=== PATIENT | female | born 1940 | race Caucasian/White ===

== ENCOUNTER 2024-08-08 12:16 | Emergency (ER) | payer MEDICARE, BC, SELFPAY ==
[2024-08-08] VITALS (13 sets, daily range): BP systolic 102–133; BP diastolic 57–78; PULSE 72–80; TEMP 37; O2SAT 88–94
--- NOTE | 2024-08-08 12:22 | ECG_ITS ---
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
--- NOTE | 2024-08-08 12:28 | ED.ABDPAIN1 ---
HPI - Abdominal Pain General Chief Complaint: Abdominal Pain Stated Complaint: ABDOMINAL PAIN Time Seen by Provider: 08/08/24 12:21 Source: patient Mode of arrival: ambulance History of Present Illness HPI narrative: The patient is a 83-year-old with a past medical history of COPD is coming to us with a lower abdominal pain associated with some changes in bowel movement, initially she mentioned that she have diarrhea but it does not seem that she have a frequent bowel movement daily he had her last bowel movement this morning and she mentioned that she did not have any nausea or vomiting She only have 1 bowel movement daily that is loose mostly The pain has been going on at least for 2 weeks The patient is complaining of crampy abdominal pain that is in the lower abdomen not radiating associated with any other symptoms she has been eating within normal appetite with some nausea but no vomiting The patient denies any burning with urination or any other concern Related Data Home Medications ?Medication ?Instructions ?Recorded ?Confirmed fluticasone furoate 100 1 inh inhalation Q24H 08/08/24 08/08/24 mcg-vilanterol 25 mcg/dose inhalation powder (Breo Ellipta) Allergies Allergy/AdvReac Type Severity Reaction Status Date / Time No Known Drug Allergies Allergy Verified 08/08/24 12:20 Review of Systems ROS Status of ROS 10 or more systems reviewed and unremarkable except as noted in history and below Exam Narrative Exam Narrative: Nurses notes and vital signs reviewed and patient is not hypoxic. General: Well-appearing and in no apparent distress. Skin: Warm, dry, no pallor noted. No rash. Head: Normocephalic, atraumatic. Neck: Supple, non-tender. Eye: Pupils are equal, round and EOMI. No scleral icterus. Ears, Nose, Mouth, and Throat: TM are clear, no nasal mucosal hypertrophy. Oral mucosa is moist, no posterior oropharynx erythema, uvula is mid-line Cardiovascular: Regular Rate and Rhythm without murmur, gallop or rub. Respiratory: No accessory muscle use or respiratory distress. Lungs are clear to auscultation, no wheezing, rales or rhonchi Chest Wall: no tenderness Back: No midline thoracic or lumbar vertebral tenderness. No CVA tenderness Musculoskeletal: normal ROM, no calf or popliteal tenderness, no lower extremity edema/swelling GI: Lower abdominal discomfort mostly in the lower abdomen generally and the patient have negative McBurney No masses appreciated. . No rebound, guarding, or rigidity noted. Neurological: A&O x4. No cranial nerve dysfunction observed. No truncal ataxia. Moves all extremities. Sensation intact. Psychiatric: Cooperative and interactive. Normal mood and affect. Constitutional Vital Signs, click to edit/add: Last Vital Signs Temp 98.6 F 08/08/24 12:16 Pulse 74 08/08/24 14:30 Resp 15 08/08/24 14:30 BP 103/74 08/08/24 15:00 Pulse Ox 92 L 08/08/24 14:30 O2 Del Method Nasal Cannula 08/08/24 12:21 O2 Flow Rate 2 08/08/24 12:21 Course Vital Signs Vital signs: Vital Signs Temperature 98.6 F 08/08/24 12:16 Pulse Rate 78 08/08/24 12:16 Respiratory Rate 20 08/08/24 12:16 Blood Pressure 133/78 08/08/24 12:16 Pulse Oximetry 88 L 08/08/24 12:16 Oxygen Delivery Method Room Air 08/08/24 12:16 Temperature 98.6 F 08/08/24 12:16 Pulse Rate 74 08/08/24 14:30 Respiratory Rate 15 08/08/24 14:30 Blood Pressure 103/74 08/08/24 15:00 Pulse Oximetry 92 L 08/08/24 14:30 Oxygen Delivery Method Nasal Cannula 08/08/24 12:21 Oxygen Delivery Flow Rate 2 08/08/24 12:21 MDM - Abdominal Pain MDM Narrative Medical decision making narrative: The patient CBC and chemistry showed no acute pathology that is significant specially with the patient mentioning that she have loose stool daily The patient had 500 cc of normal saline provided in the ER EKG showing sinus rhythm with a heart rate of [address] elevation or depression It was noted that the patient did not have any significant pain in the ER and also had this pulse ox that was low without the oxygen but she is oxygen dependent which is not a new complaint and she denies any chest pain or shortness of breath The patient CAT scan of the abdomen and pelvis showed that she have multiple chronic pathology including the fact that she have this endometrial thickening which according to the patient she has been evaluated 3 months ago for something similar because of endometrial mass, I did explain to the patient that she need to go back to her primary care doctor and 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 The patient agrees with the following Diagnosis and Treatment plan and the patient will be discharged home. Lab Data Labs: Lab Results 08/08/24 Range/Units 12:20 WBC 7.4 (4.0-11.0) 10^3/uL RBC 4.49 (4.20-5.40) 10^6/uL Hgb 13.8 (12.0-16.0) g/dL Hct 43.6 (36.0-48.0) % MCV 97.1 (81.0-99.0) fL MCH 30.7 (26.7-34.0) pg MCHC 31.7 (29.9-35.2) g/dL RDW 13.2 (11.0-15.0) % Plt Count 184 (150-450) 10^3/uL MPV 11.5 (9.5-13.5) fL Neut % (Auto) 59.8 (43.0-75.0) % Lymph % (Auto) 26.1 (20.5-60.0) % [place] % (Auto) 7.2 (1.7-12.0) % Eos % (Auto) 5.7 (0.9-7.0) % Baso % (Auto) 0.9 (0.2-2.0) % Neut # (Auto) 4.4 (1.4-6.5) 10^3/uL Lymph # (Auto) 1.9 (1.2-3.8) 10^3/uL [place] # (Auto) 0.5 (0.3-0.8) 10^3/uL Eos # (Auto) 0.4 (0.0-0.7) 10^3/uL Baso # (Auto) 0.1 (0.0-0.1) 10^3/uL Abs Immat Gran (auto) 0.02 (0.00-0.03) 10^3/uL Imm/Tot Granulo (auto) 0.3 (0.0-0.5) % PT 10.6 (9.0-11.6) sec INR 1.00 Sodium 140 (136-145) mmol/L Potassium 4.8 (3.5-5.1) mmol/L Chloride 102 (98-107) mmol/L Carbon Dioxide 27.2 (21.0-32.0) mmol/L Anion Gap 15.6 BUN 15.0 (7.0-18.0) mg/dL Creatinine 0.97 (0.55-1.02) mg/dL Est GFR ( Amer) >60 (>=60 mL/min/1.73m^2) Est GFR (Non-Af Amer) 55 L (>=60 mL/min/1.73m^2) BUN/Creatinine Ratio 15.5 Glucose 159 H (74-106) mg/dL Calcium 9.5 (8.5-10.1) mg/dL Total Bilirubin 1.1 H (0.2-1.0) mg/dL AST 24 (15-37) U/L ALT 20 (14-59) U/L Alkaline Phosphatase 51 (46-116) U/L Troponin I High Sens 5.7 (4.0-51.3) pg/mL Total Protein 6.8 (6.4-8.2) g/dL Albumin 3.6 (3.4-5.0) g/dL Globulin 3.2 g/dL Albumin/Globulin Ratio 1.1 Lipase 17.0 (16.0-77.0) U/L Discharge Plan Discharge Chief Complaint: Abdominal Pain Clinical Impression: Abdominal pain, Endometrial mass Patient Disposition: Home, Self-Care Time of Disposition Decision: 14:56 Condition: Good Prescriptions / Home Meds: No Action fluticasone furoate-vilanterol [Breo Ellipta] 100-25 mcg/dose blister with device 1 inh INHALATION Q24H Print Language: Macedonian Instructions: Abdominal Pain (ED) Referrals: Stefani Colón NP [Primary Care Provider] - 1 week Discharge Date/Time: 08/08/24 15:26
--- NOTE | 2024-08-08 12:29 | CT_ITS ---
[address] [address] Patient Name: FAROOQ JIANG MRN: [id number] date: 1940 Sex: F Assigned Patient Location: ER Current Patient Location: ER Accession/Order Number: [id number] Exam Date: 08/08/2024 13:00 Report Date: 08/08/2024 14:12 At the request of: MOHSEN STARKEY Procedure: CT abdomen pelvis wo con EXAMINATION: CT abdomen pelvis wo con HISTORY: abd pain , epigastric pain, nausea COMPARISON: CT abdomen 12/28/2011 TECHNIQUE: Axial, Coronal, and Sagittal images were obtained without and/or with IV contrast as indicated by examination type. Dose reduction techniques were achieved by using automated exposure control and/or adjustment of mA and/or kV according to patient size and/or use of iterative reconstruction technique. FINDINGS: LUNG BASES: No visible pulmonary or pleural disease. LIVER: Densely calcified masslike area within anterior right hepatic lobe, 2.7 cm in diameter. BILIARY: Cholecystectomy. PANCREAS: No lesion, fluid collection, or abnormal duct dilatation. SPLEEN: No enlargement or focal lesion. ADRENALS: No mass or enlargement. KIDNEYS: No mass, obstruction, or calcification. BOWEL/MESENTERY: No visible mass, obstruction, or bowel wall thickening. AORTA/VASCULAR: No aneurysm or dissection. RETROPERITONEUM: No mass or adenopathy. LYMPH NODES: No adenopathy. URINARY BLADDER: No visible focal wall thickening, lesion, or calculus. PELVIC ORGANS: Fluid filled versus mass within endometrial cavity of the uterus, 3.8 cm in thickness. ABDOMINAL WALL: No mass or hernia. BONES: Old, healed posterior lower left rib fractures. 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 OTHER: Negative. CT/CT abdomen pelvis wo con IMPRESSION: 1. No acute or specific findings to account for patient's symptoms. 2. Densely calcified structure within anterior right hepatic lobe; sequela of previously treated tumor, or possibly a large granuloma. 3.Markedly abnormal thickening of the endometrial cavity, 3.9 cm; fluid-filled versus soft tissue mass. ORDER TO DELIVERY SUPERVISOR consultation is recommended. Electronically authenticated by: ZAHRAA PATEL Date: 08/08/2024 14:12
[2024-08-08 13:09] LABS: Basophils Absolute Auto 0.1 10^3/uL (0.0-0.1); Basophils Percent Auto 0.9 % (0.2-2.0); Eosinophils Absolute Auto 0.4 10^3/uL (0.0-0.7); Eosinophils Percent Auto 5.7 % (0.9-7.0); Hematocrit 43.6 % (36.0-48.0); Hemoglobin 13.8 g/dL (12.0-16.0); Immature Granulocytes Abs Auto 0.02 10^3/uL (0.00-0.03); Immature Granulocytes Pct Auto 0.3 % (0.0-0.5); Lymphocytes Absolute Auto 1.9 10^3/uL (1.2-3.8); Lymphocytes Percent Auto 26.1 % (20.5-60.0); Mean Corpuscular HGB Conc 31.7 g/dL (29.9-35.2); Mean Corpuscular Hemoglobin 30.7 pg (26.7-34.0); Mean Corpuscular Volume 97.1 fL (81.0-99.0); Mean Platelet Volume 11.5 fL (9.5-13.5); Monocytes Absolute Auto 0.5 10^3/uL (0.3-0.8); Monocytes Percent Auto 7.2 % (1.7-12.0); Neutrophils Absolute Auto 4.4 10^3/uL (1.4-6.5); Neutrophils Percent Auto 59.8 % (43.0-75.0); Platelet Count 184 10^3/uL (150-450); Red Blood Count 4.49 10^6/uL (4.20-5.40); Red Cell Distribution Width 13.2 % (11.0-15.0); White Blood Count 7.4 10^3/uL (4.0-11.0)
[2024-08-08 13:27] LABS: Prothrombin Time 10.6 sec (9.0-11.6)
[2024-08-08 13:32] LABS: Alanine Aminotransferase 20 U/L (14-59); Albumin Globulin Ratio 1.1; Albumin Level 3.6 g/dL (3.4-5.0); Alkaline Phosphatase 51 U/L (46-116); Anion Gap 15.6; Aspartate Amino Transferase 24 U/L (15-37); BUN Creatinine Ratio 15.5; Bilirubin Total 1.1 mg/dL (0.2-1.0); Calcium 9.5 mg/dL (8.5-10.1); Carbon Dioxide 27.2 mmol/L (21.0-32.0); Chloride 102 mmol/L (98-107); Estimated GFR (African America >60 (>=60 mL/min/1.73m^2); Estimated GFR (Non-African Ame 55 (>=60 mL/min/1.73m^2); Globulin 3.2 g/dL; Glucose 159 mg/dL (74-106); Potassium 4.8 mmol/L (3.5-5.1); Sodium 140 mmol/L (136-145); Total Protein 6.8 g/dL (6.4-8.2); Troponin I High Sensitivity 5.7 pg/mL (4.0-51.3)
== END 2024-08-08 15:26 | disposition home or self-care (01) ==
PROVIDERS: Emergency Provider Emergency Medicine; PCP Nurse Practitioner Family
DX: R10.9 Unspecified abdominal pain (principal); N85.8 Other specified noninflammatory disorders of uterus
CPT/HCPCS: 36415; 74176; 80053; 83690; 84484; 85025; 85378; 85610; 93005; 99285

== ENCOUNTER 2025-04-30 10:50 | Outpatient (OUT) | payer MEDICARE, BC, SELFPAY ==
--- NOTE | 2025-04-30 10:55 | ECG_ITS ---
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 Measurements Intervals [place] Rate: 79 P: -49 OR: 158 QRS: -58 QRSD: 86 T: 38 QT: 374 QTc: 430 Interpretive Statements SINUS RHYTHM PATTERN CONSISTENT WITH PULMONARY DISEASE LEFT ANTERIOR FASCICULAR BLOCK [QRS AXIS <= -45, QR IN I, RS IN II] Compared to ECG 08/08/2024 12:21:41 No significant changes Electronically Signed On 05-01-2025 18:20:27 EDT by MELVINA KEY M.D.
[2025-04-30 12:13] LABS: Hematocrit 43.1 % (36.0-48.0); Hemoglobin 14.1 g/dL (12.0-16.0); Immature Granulocytes Abs Auto 0.02 10^3/uL (0.00-0.03); Immature Granulocytes Pct Auto 0.3 % (0.0-0.5); Lymphocytes Absolute Auto 1.4 10^3/uL (1.2-3.8); Mean Corpuscular HGB Conc 32.7 g/dL (29.9-35.2); Mean Corpuscular Hemoglobin 31.3 pg (26.7-34.0); Mean Corpuscular Volume 95.8 fL (81.0-99.0); Platelet Count 151 10^3/uL (150-450); Red Blood Count 4.50 10^6/uL (4.20-5.40); White Blood Count 7.2 10^3/uL (4.0-11.0)
--- NOTE | 2025-04-30 12:22 | XR_ITS ---
[address] [address] Patient Name: FAROOQ JIANG MRN: [id number] date: 1940 Sex: F Assigned Patient Location: [facility] Current Patient Location: [facility] Accession/Order Number: [id number] Exam Date: 04/30/2025 12:32 Report Date: 04/30/2025 12:32 At the request of: JAYLEN ALBA DO Procedure: XR chest 2V Chest 2 views CLINICAL HISTORY: Pre Op COMPARISON: None FINDINGS: Heart normal in size. Presumably remote posttraumatic changes involving the right rib cage. No lung consolidation pneumothorax pleural effusion or free air. XR/XR chest 2V IMPRESSION: NO ACUTE CARDIOPULMONARY ABNORMALITY. Impression dictated by: Tenzin Pineda Jr., D.O. 04/30/2025 12:32 PM Dictation Location: [place] [address] Electronically authenticated by: [id number] Y Date: 04/30/2025 12:32
[2025-04-30 12:27] LABS: Anion Gap 11.3; Blood Urea Nitrogen 17.0 mg/dL (7.0-18.0); Calcium 8.9 mg/dL (8.5-10.1); Carbon Dioxide 32.6 mmol/L (21.0-32.0); Chloride 104 mmol/L (98-107); Estimated GFR (African America >60 (>=60 mL/min/1.73m^2); Estimated GFR (Non-African Ame >60 (>=60 mL/min/1.73m^2); Glucose 218 mg/dL (74-106); Potassium 4.9 mmol/L (3.5-5.1); Sodium 143 mmol/L (136-145)
--- NOTE | 2025-04-30 12:27 | PM.PRESUREVA ---
History of Present Illness History of Present Illness Chief complaint: Uterine Leomyoma, Pelvic Pain, Uterine Polyp Narrative: Patient presents for presurgical testing. Please see HPI from Dr. Malagon dated April 23, 2025. Review of Systems ROS Narrative Please see ROS from Dr. Malagon dated April 23, 2025. [facility] Medical History (Updated 04/30/25 @ 12:26 by Di Berger NP) Fibromyalgia �M79.7 - Fibromyalgia (ICD-10) Fall �W19.XXXA - Unspecified fall, initial encounter (ICD-10) Seizure-like activity �R56.9 - Unspecified convulsions (ICD-10) Atypical atrial flutter �I48.4 - Atypical atrial flutter (ICD-10) SHRUTHI (obstructive sleep apnea) �G47.33 - Obstructive sleep apnea (adult) (pediatric) (ICD-10) Nonproliferative diabetic retinopathy of both eyes �E11.3293 - Type 2 diabetes mellitus with mild nonproliferative diabetic retinopathy without macular edema, bilateral (ICD-10) Diverticulosis �K57.90 - Diverticulosis of intestine, part unspecified, without perforation or abscess without bleeding (ICD-10) Diabetic nephropathy �E11.21 - Type 2 diabetes mellitus with diabetic nephropathy (ICD-10) Chronic bronchitis �J42 - Unspecified chronic bronchitis (ICD-10) Atrial fibrillation �I48.91 - Unspecified atrial fibrillation (ICD-10) Arthritis �M19.90 - Unspecified osteoarthritis, unspecified site (ICD-10) Osteoporosis �M81.0 - Age-related osteoporosis without current pathological fracture (ICD-10) Deep vein thrombosis �I82.409 - Acute embolism and thrombosis of unspecified deep veins of unspecified lower extremity (ICD-10) Depression �F32.A - Depression, unspecified (ICD-10) On home oxygen therapy �Z99.81 - Dependence on supplemental oxygen (ICD-10) Seizures �R56.9 - Unspecified convulsions (ICD-10) Tonsillar hypertrophy �J35.1 - Hypertrophy of tonsils (ICD-10) Cataract �H26.9 - Unspecified cataract (ICD-10) Adenoid hypertrophy �J35.2 - Hypertrophy of adenoids (ICD-10) Hypertension �I10 - Essential (primary) hypertension (ICD-10) Diabetes �E11.9 - Type 2 diabetes mellitus without complications (ICD-10) Uterine polyp �N84.0 - Polyp of corpus uteri (ICD-10) Pelvic pain �R10.2 - Pelvic and perineal pain (ICD-10) Leiomyoma �D21.9 - Benign neoplasm of connective and other soft tissue, unspecified (ICD-10) Surgical History (Updated 04/30/25 @ 11:32 by Di Berger NP) History of tonsillectomy (1954) �Z90.89 - Acquired absence of other organs (ICD-10) H/O shoulder surgery �Z98.890 - Other specified postprocedural states (ICD-10) History of total hip arthroplasty �Z96.649 - Presence of unspecified artificial hip joint (ICD-10) History of colonoscopy �Z98.890 - Other specified postprocedural states (ICD-10) History of cholecystectomy �Z90.49 - Acquired absence of other specified parts of digestive tract (ICD-10) History of dilation and curettage �Z98.890 - Other specified postprocedural states (ICD-10) S/P cataract extraction and insertion of intraocular lens �Z98.49 - Cataract extraction status, unspecified eye (ICD-10) �Z96.1 - Presence of intraocular lens (ICD-10) Family History (Updated 04/30/25 @ 11:32 by Di Berger NP) Other Family history of diabetes mellitus Family history of hypertension Family history of stroke Social History (Updated 04/30/25 @ 11:26 by Di Berger NP) Within the past year, how often did you have a drink containing alcohol: never Score interpretation: A score less than 3 is consistent with normal alcohol consumption. Smoking status: Never smoker Non-prescribed substance use: denies use Highest level of school completed/degree received: high school graduate Meds Home Medications and Allergies Home Medications �Medication �Instructions �Recorded �Confirmed �Type fluticasone furoate 100 1 inh inhalation Q24H 08/08/24 04/30/25 History mcg-vilanterol 25 mcg/dose inhalation powder (Breo Ellipta) alendronate 70 mg tablet 70 mg PO QWEEK 04/30/25 04/30/25 History insulin glargine 100 unit/mL (3 45 unit subcut QPM 04/30/25 04/30/25 History mL) subcutaneous pen (Lantus Solostar U-100 Insulin) levetiracetam 1,000 mg tablet 1,000 mg PO Q12H 04/30/25 04/30/25 History lisinopril 2.5 mg tablet 2.5 mg PO DAILY 04/30/25 04/30/25 History multivitamin (Daily Multi-Vitamin 1 tab PO DAILY 04/30/25 04/30/25 History tablet) sertraline 100 mg tablet 100 mg PO DAILY 04/30/25 04/30/25 History Allergies Allergy/AdvReac Type Severity Reaction Status Date / Time No Known Drug Allergies Allergy Verified 04/30/25 11:16 Exam Narrative Exam Narrative: Constitutional: Awake, alert, comfortable, appears younger than stated age, well-appearing, nontoxic, interactive, vital signs as charted Head: Normocephalic, atraumatic Neck: Supple, normal appearance, normal range of motion, no meningeal signs, no lymphadenopathy Respiratory: No respiratory distress, breath sounds clear Cardiovascular: Regular rate and rhythm, strong and regular heart tones Abdomen: Nontender, normal bowel sounds, soft, no CVA tenderness Musculoskeletal: Ambulates briskly with a walker, no swelling or edema Skin: No rashes or induration, no lesions, only visible skin inspected Neuro: No neurological deficits, normal sensation Psychiatric: Oriented �3, normal affect Assessment and Plan Assessment and Plan (1) Leiomyoma: (2) Pelvic pain: (3) Uterine polyp: Plan D&C, hysteroscopy, possible MyoSure scheduled with Dr. Malagon May 16, 2025.
[2025-04-30 12:33] LABS: INR 0.97; Partial Thromboplastin Time 25.6 sec (22.3-36.2); Prothrombin Time 10.3 sec (9.0-11.6)
== END 2025-04-30 10:51 | disposition home or self-care (01) ==
LOC: PST 10:51
PROVIDERS: PCP Nurse Practitioner Family; Visit Provider Obstetrics & Gynecology
DX: Z01.810 Encounter for preprocedural cardiovascular examination (principal); Z01.812 Encounter for preprocedural laboratory examination; Z01.818 Encounter for other preprocedural examination; D25.9 Leiomyoma of uterus, unspecified; R10.2 Pelvic and perineal pain; N84.0 Polyp of corpus uteri
CPT/HCPCS: 36415; 71046; 80048; 85025; 85610; 85730; 93005; G0463

== ENCOUNTER 2025-05-16 08:19 | Day surgery (SDC) | payer MEDICARE, BC, SELFPAY ==
[2025-04-30 12:05] VITALS: BP 146/72; PULSE 80; TEMP 36.2; O2SAT 93; BMI 32.6
--- OUTSIDE RECORDS SUMMARY | 2025-05-07 09:00 | XMS_ITS | Encounter Summary ---
Author Organization [employer] [facility] tem Address [id number] [address] [place] [address] Care Team Providers Care Political Science Instructor Name Role Phone Stefani Colón COMMERCIAL INSURANCE UNDERWRITER-INSPECTOR DIALS Primary Care Provider Reason for Visit * Reason Comments Urinary Tract Infection * Consultation (Routine) - Pending Review Specialty Diagnoses / Procedures Referred By Vlad jordan Referred To Contact Urology Diagnoses Frequent UTI Procedures IA OFFICE OUTPATIENT VISIT 60-74 MINS HIGH MDM [phone] (SNOMED CT) - AMB REFERRAL TO UROLOGY Stefani Colón, MODESTA-INSPECTOR DIALS [address] [place] [address] Phone: tel: fax: Leland Fung MD [address] [place] [address] Phone: tel: fax: Referral ID Status Reason Start Date Expiration Date V isits Requested Visits Authorized [id number] Pending Review 11/22/2024 05/21/2025 1 1 Encounter Details Date Type Department Care Team (Late st Contact Info) Description 05/07/2025 9:00 AM EDT Office Visit [facility] [address] [place] [address] [place] [address] [place] [phone] Sosa De La Cruz PA [address] [place] [address] [id number] Frequent UTI (Primary Dx) Social History Tobacco Use Types Packs/Day Years Used Date Smoking Tobacco: Never Smokeless Tobacco: Never Alcohol Use Standard Drinks/Week Comments Not Currently 0 (1 standard drink = 0.6 oz pur e alcohol) [facility] Utilities Answer Date Recorded In the past 12 months has th e electric, gas, oil, or water company threatened to shut off services in your home? No 09/28/2023 Social Connection and Isolation Panel [NHANES] A nswer Date Recorded In a typical week, how many times do you talk on the phone with family, friends, or neighbors? Three times a week 09/28/20 How often do you get togethe r with friends or relatives? Once a week 09/28/2023 How often do you attend chur ch or adventism services? 1 to 4 times per year 09/28/2023 Do you belong to any clubs o r organizations such as spiritism groups, unions, fraternal or athletic groups, or school groups? No 09/28/2023 How often do you attend meet ings of the clubs or organizations you belong to? Never 09/28/2023 Are you , , di vorced, , never , or living with a partner? 09/28/2023 AUDIT-C Answer Date Recorded Q1: How often do you have a drink containing alcohol? Never 10/01/2023 Q2: How many drinks containi ng alcohol do you have on a typical day when you are drinking? Patient does not drink Q3: How often do you have si x or more drinks on one occasion? Never 10/01/2023 Overall Financial Resource Strain (CARDIA) Answe r Date Recorded How hard is it for you to pa y for the very basics like food, housing, medical care, and heating? Not very hard 09/28/2023 PHQ-2 Answer Date Recorded Total Score 0 10/01/2023 [facility] of Occupat ional Health - Occupational Stress Questionnaire Answer Date Recorded Do you feel stress - tense, restless, nervous, or anxious, or unable to sleep at night because your mind is troubled all the time - these days? Only a little 09/28/2023 Exercise Vital Sign Answer Date Recorde d On average, how many days pe r week do you engage in moderate to strenuous exercise (like a brisk walk)? 0 days 09/28/2023 On average, how many minutes do you engage in exercise at this level? 0 min 09/28/2023 PRAPARE - Transportation Answer Date Re corded In the past 12 months, has l ack of transportation kept you from medical appointments or from getting medications? No 09/01 In the past 12 months, has l ack of transportation kept you from meetings, work, or from getting things needed for daily living? No 09/28/2023 Housing Instability Answer Date Recorde d Are you worried or concerned that in the next two months you may not have stable housing that you own, rent or stay in as a part of a household? No 09/28/2023 Childcare Answer Date Recorded Do problems getting child ca re make it difficult for you to work or study? No 09/28/2023 Employment Answer Date Recorded Do you need help finding a [facility] center and/or a training program? No 09/28/2023 Hunger Screening Answer Date Recorded Within the past 12 months we worried whether our food would run out before we got money to buy more. Never True 05/07/2025 Within the past 12 months th e food we bought just didn't last and we didn't have money to get more. Never True 05/07/2025 Purpose - Life Answer Date Recorded I have a purpose and direction in my life. Agree 09/28/2023 Comments No Sex and Gender Information Value Date Recorded Sex Assigned at Female 02/12/2022 10:44 PM EDT Legal Sex Female 11:31 AM EDT Gender Identity Female 04/20/2020 12:29 PM EDT Sexual Orientation Straight 02/12/2022 10 :44 PM EDT documented as of this encounter Last Filed Vital Signs Vital Sign Reading Time Taken Comments Blood Pressure - - Pulse - - Temperature - - Respiratory Rate - - Oxygen Saturation - - Inhaled Oxygen Concentration - - Weight 80.7 kg (178 lb) 05/07/2025 9:27 AM EDT Height 162.6 cm (5' 4 ) 05/07/2025 9:27 AM EDT Body Mass Index 30.55 05/07/2025 9:27 AM EDT documented in this encounter Patient Instructions * Patient Instructions* ODELL Jara - 05/07/2025 9:00 AM EDT For further evaluation, we will get you scheduled for an ultrasound of your kidneys and bladder minerva cystoscopy with possible retrograde pyelograms and U of M instillation. We will call you with theresults of the ultrasound. Rosanne will call you in a few weeks to get you scheduled for the cystoscopy Call the office any time you suspected infection. For Urinary tract infection prevention, you could look in to cranberry supplements and or D mannosesupplements. * Attachments The following attachments cannot be sent through Care Everywhere. * Cystoscopy ([place]) * Retrograde pyelogram ([place]) documented in this encounter Progress Notes * ODELL Jara - 05/07/2025 9:00 AM EDT Images from the original note were not included. [address] [place] [id number] Patient: Allison Harris Date of : 1940 Encounter Date: 05/07/2025 History of Present Illness: The patient is a 84 y.o. female, a new patient, and is here for frequent urinary tract infections. She reports that for the past 6-12 months she has had numerous Urinary tract infections. Her symptoms typically include dark urine and burning with urination. She has not had any gross hematuria or fever. She has been seeing her PCP and reports that she always feels better on antibiotics. She has no prior urologic history and denies any current symptoms. She is not able to give us a urine specimen today. She has been having some mid abdominal pain and is scheduled for a D&C 05/17/2025 at [place]. She reports that they found a polyp. C&S 02/07/25: mixed sravanthi C&S 11/19/24: 50-100,000 Enterococcus C&S : >100,000 Hafnia alvei C&S 08/23/24: >100,000 Hafnia alvei C&S 01/23/24: >100,000 Enterococcus Urinalysis today: No results for input(s): EXTPOCURCO , EXTPOCURCH , EXTPOCAPP , EXTPOCURBS , EXTPOCURBIL , EXTPOCUKET , EXTPOCUSPG , EXTPOCUHGB , EXTPOCUPRO , EXTPOCUURO , EXTPOCULEU , EXTPOCUNIT , EXTPOCUWBC , EXTPOCUBLD , EXTPOCURBC , EXTPOCUCRY , EXTPOCUBAC , EXTPOCUTREP , EXTPOCUPH , EXTPOCUL EE in the last 72 hours. Last BUN and creatinine: Lab Results Component Value Date BUN 21 03/29/2024 Lab Results Component Value Date CREATININE 0.89 03/29/2024 Past Medical, Family, and Social History Update: The following portions of the patient's history were reviewed and updated as appropriate: allergies, current medications, past family history, past medical history, past social history, past surgicalhistory and problem list. 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 Asthma Cataract Diabetes ([place]) Diabetes type 2, controlled ([place]) Diverticulitis Fibromyalgia Hearing loss Hip fracture ([place]) History of cystocele Lumbar spinal stenosis Multiple rib fractures 01/01/2023 OA (osteoarthritis) Obesity SHRUTHI (obstructive sleep apnea) Pulmonary hypertension ([place]) UTI (urinary tract infection) Visual impairment Past Surgical History: Procedure Laterality Date CATARACT EXTRACTION CHOLECYSTECTOMY COLONOSCOPY CRANIECTOMY FOR EXCISION OF ACOUSTIC NEUROMA DENTAL SURGERY total extraction DILATION AND CURETTAGE OF UTERUS HIP SURGERY KNEE ARTHROCENTESIS REVERSE ARTHROPLASTY TOTAL SHOULDER Right 02/24/2022 Performed by Christopher Landaverde MD at [facility] T[facility] Family History Problem Relation Age of Onset Stroke Mother Hypothyroidism Mother Diabetes Father Stroke Father Current Outpatient Medications Medication Sig Dispense Refill alendronate (FOSAMAX) 70 mg tablet Take 1 tablet (70 mg total) by mouth every 7 days. In a.m. with water on empty stomach, nothing else by mouth and remain upright for 30min fluticasone furoate-vilanteroL (BREO ELLIPTA) 100-25 mcg/dose blister with device Inhale 1 puff in the morning. 60 each 9 LEVEMIR FLEXTOUCH U-100 INSULN 100 unit/mL (3 mL) insulin pen Inject 38 Units under the skin nightly. levETIRAcetam (KEPPRA) 1000 mg tablet Take 1 tablet (1,000 mg total) by mouth in the morning and 1 tablet (1,000 mg total) before bedtime. lisinopriL (PRINIVIL,ZESTRIL) 2.5 mg tablet Take 1 tablet (2.5 mg total) by mouth in the morning. multivitamin capsule Take 1 capsule by mouth in the morning. semaglutide 14 mg tablet Take 14 mg by mouth in the morning. sertraline (ZOLOFT) 50 mg tablet Take 1 tablet (50 mg total) by mouth in the morning. ipratropium-albuteroL (DUONEB) 0.5 mg-3 mg(2.5 mg base)/3 mL nebulizer Inhale 3 mL by nebulization every 4 (four) hours as needed for wheezing or shortness of breath. (Patient not taking: Reported on05/07/2025) levETIRAcetam (KEPPRA) 1000 mg tablet Take 1 tablet (1,000 mg total) by mouth in the morning and 1 tablet (1,000 mg total) before bedtime. (Patient not taking: Reported on 05/07/2025) 60 tablet 05 No current facility-administered medications for this visit. (All medications reviewed and updated by provider since last office visit or hospitalization) Allergies: Patient has no known allergies. Tobacco History: Social History Tobacco Use Smoking Status Never Smokeless Tobacco Never (If patient a smoker, smoking cessation counseling offered) Social History: Social History Substance and Sexual Activity Alcohol Use Not Currently Review of Systems: Constitutional: Normal activity and energy. Patient denies change in appetite, weight loss or gain,malaise (depression), chills, fever, or diaphoresis (sweating). Eyes: Patient denies vision changes or diplopia (double vision). Ears, Nose, Nose and Throat: Patient denies tinnitus (ringing in ears), hearing loss, epistaxis (nose bleed), hoarseness, and dysphagia (hard to swallow). Respiratory: Patient denies dyspnea (shortness of breath), cough, hemotypsis (blood in sputum), andwheezing. Cardiovascular: Patient denies chest pain, palpitations, and shortness of breath. Gastrointestinal: Patient denies abdominal pain, nausea, vomiting, bloating, diarrhea (chronic), constipation (chronic), melena (black stool), hematochezia (blood in stool). Musculoskeletal: Patient denies joint pain/stiffness, weakness, swelling, and backache. Neurologic: Patient denies weakness, dizziness, loss of consciousness, transient ischemic symptoms,and seizures. Integument: Patient denies rashes and non-healing lesions. Psychiatric: Patient denies increased nervousness, mood changes, or depression. Endocrine: Diabetes Blood Disorders: Patient denies anemia, easy bruising, and easy bleeding. Physical Exam: Ht 162.6 cm (5' 4 ) Wt 80.7 kg (178 lb) LMP (LMP Unknown) BMI 30.55 kg/m?? Constitutional: She appears well-developed. No distress. HENT: Head: Atraumatic. Nose: Nose normal. Eyes: Conjunctivae are normal. Pulmonary/Chest: Effort normal. No respiratory distress. Neurological: She is alert and oriented for age. Gait ; Uses a walker Psychiatric: She has a normal mood and affect. Her speech is normal. Nursing note and vitals reviewed. Assessment and Plan: Allison was seen today for urinary tract infection. Diagnoses and all orders for this visit: Frequent UTI - Ultrasound retroperitoneal complete; Future Problem List Genitourinary Frequent UTI - Primary Overview ====05/07/25====Frequent UTIs. 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 She will look in to cranberry and or D mannose supplements Current Assessment & Plan I explained cystoscopy to her in detail, including the potential risks. She will let the claim attorney know if she would prefer to be awake or asleep for the procedure. She will contact the office any time she suspects an infection so that we can have her stop at the lab to leave a urine. She has been referred to Dr. Fung. Relevant Orders Ultrasound retroperitoneal complete Follow-up: Print AVS. Renal US. Rosanne will call ODELL JARA This note was created with the assistance of a speech recognition program. While intending to generate a timely document that accurately reflects the content of the visit, no guarantee can be provided that every grammatical or spelling mistake has been or will be identified or corrected. Thank you for your understanding. ODELL Jara 05/07/25 0957 documented in this encounter Miscellaneous Notes * Assessment & Plan Note - ODELL Jara - 05/07/2025 9:56 AM EDT Associated Problem(s): Frequent UTI I explained cystoscopy to her in detail, including the potential risks. She will let the claim attorney know if she would prefer to be awake or asleep for the procedure. She will contact the office any time she suspects an infection so that we can have her stop at the lab to leave a urine. She has been referred to Dr. Fung. documented in this encounter Plan of Treatment Scheduled Orders Name Type Priority Associated Diagnoses Orde r Schedule Ultrasound retroperitoneal complete Imaging Routine Frequent UTI Expected: 05/07/2025, Expires: 05/07/2026 documented as of this encounter Goals Goal Patient Goal Type Associated Problems Recent Progress Patient-Stated? Author home General Yes Jil Howard LSW Note: Evaluation of progress towards goal: under assessment, pt awake & alert/oriented at time of DC planning assessment Return home General Yes Charito Armstrong, RN Note: Evaluation of progress towards goal: Plan to return home with home care. documented as of this encounter Visit Diagnoses Diagnosis Frequent UTI- Primary Urinary tract infection, site not specified documented in this encounter Additional Health Concerns Assessment Noted Time PHQ-9 Depression Total Score: 0 10/01/20 23 1:59 PM EST documented as of this encounter Care Teams Political Science Instructor Relationship Specialty Start Date End Date Stefani Colón APRN-ANTOINETTE [address] [place] [address] PCP - General Nurse Practitioner 03/29/24 documented as of this encounter
[2025-05-16] VITALS (8 sets, daily range): BP systolic 95–167; BP diastolic 50–80; PULSE 66–110; TEMP 35.6–36.6; O2SAT 92–99; BMI 33.8
--- OUTSIDE RECORDS SUMMARY | 2025-05-16 08:22 | XMS_ITS | Encounter Summary ---
Author Organization [facility] Address [address] [place] [address] Care Team Providers Care Hand Alterations Seamstress Name Role Phone Nancy Rios MD Primary Care Provider [phone] Stefani Colón CARE TRAINER Unavailable [phone] Rachel Storm LPN Unavailable [phone] Encounter Details Date Type Department Care Team (Late st Contact Info) Description 04/30/2025 Results Follow-Up [facility] [address] [place] [address] Stefani Colón NP [address] [place], [place] [id number] Social History Tobacco Use Types Packs/Day Years Used Date Smoking Tobacco: Never Smokeless Tobacco: Never Alcohol Use Standard Drinks/Week Comments Never 0 (1 standard drink = 0.6 oz pur e alcohol) caffeine: 1 cups per day B1300 Health Literacy Answer Date Recor ded How often do you need to hav e someone help you when you read instructions, pamphlets, or other written material from your doctor or pharmacy? Never 11/18/2024 Social Connection and Isolat ion Panel [NHANES] Answer Date Recorded In a typical week, how many times do you talk on the phone with family, friends, or neighbors? More than three times a week 11/18/2024 How often do you get togethe r with friends or relatives? Twice a week 11/18/2024 How often do you attend chur ch or anabaptism services? More than 4 times per year 11/18/2024 Do you belong to any clubs o r organizations such as baptist groups, unions, fraternal or athletic groups, or school groups? No 11/18/2024 Attends Club or Organization Meetings Not on horacio e 11/18/2024 Are you , , di vorced, , never , or living with a partner? 11/18/2024 AUDIT-C Answer Date Recorded Q1: How often do you have a drink containing alcohol? Never 11/18/2024 Q2: How many drinks containi ng alcohol do you have on a typical day when you are drinking? Patient does not drink Q3: How often do you have si x or more drinks on one occasion? Never 11/18/2024 Overall Financial Resource Strain (CARDIA) Answe r Date Recorded How hard is it for you to pa y for the very basics like food, housing, medical care, and heating? Not very hard 11/18/2024 PHQ-2 Answer Date Recorded Patient Health Questionnaire-2 Score 0 11/19/2024 [facility]at [facility] - Occupational Stress Questionnaire Answer Date Recorded Do you feel stress - tense, restless, nervous, or anxious, or unable to sleep at night because your mind is troubled all the time - these days? Not at all 11/18/2024 Exercise Vital Sign Answer Date Recorde d On average, how many days pe r week do you engage in moderate to strenuous exercise (like a brisk walk)? 2 days 11/18/2024 On average, how many minutes do you engage in exercise at this level? 30 min 11/18/2024 Hunger Vital Sign Answer Date Recorded Within the past 12 months, y ou worried that your food would run out before you got the money to buy more. Sometimes true Within the past 12 months, t he food you bought just didn't last and you didn't have money to get more. Never true PRAPARE - Transportation Answer Date Re corded In the past 12 months, has l ack of transportation kept you from medical appointments or from getting medications? No 10/31 In the past 12 months, has l ack of transportation kept you from meetings, work, or from getting things needed for daily living? No 11/18/2024 Housing Stability Vital Sign Answer Luis Manuel e Recorded In the last 12 months, was t here a time when you were not able to pay the mortgage or rent on time? No 11/18/2024 In the past 12 months, how m any times have you moved where you were living? 0 11/18/2024 At any time in the past 12 m [facility], were you homeless or living in a prison (including now)? No 11/18/2024 Comments No Sex and Gender Information Value Date Recorded Sex Assigned at Not on file Legal Sex Female 7:07 PM EDT Gender Identity Not on file Sexual Orientation Not on file documented as of this encounter Plan of Treatment Upcoming Encounters Date Type Department Care Team (Late st Contact Info) Description 05/21/2025 9:00 AM EDT Office Visit [facility] [address] [place] [phone] Stefani Colón NP [address] [place], [place] [phone] 05/21/2025 1:20 PM EDT Office Visit [facility] [address] [place] [address] Nupur Landon PA [address] [place] [address] 07/17/2025 10:15 AM EDT Procedure Visit [facility] [address] [place] [phone] Saman Vallecillo DPM [address] [place] [address] documented as of this encounter Goals Goal Patient Goal Type Associated Problems Recent Progress Patient-Stated? Author Help patient manage antidepressant medication Care Plan Patient on antidepressant monitoring plan No Stefani Colón NP Baseline PHQ-9 Care Plan Baseline PHQ-9 No Stefani Colón NP documented as of this encounter Visit Diagnoses Not on filedocumented in this encounter Additional Health Concerns Active Problems Noted Date Diagnosed Date Patient on antidepressant monitoring plan 2024 Baseline PHQ-9 11/06/2024 Assessment Noted Time PHQ-9 Depression Total Score: 0 11/19/19 25 12:00 PM EST documented as of this encounter Care Teams Hand Alterations Seamstress Relationship Specialty Start Date End Date Nancy Rios MD [address] [place], [place] [phone] PCP - General Family Medicine 11/28/23 Stefani Colón NP [address] [place] [address] Nurse Practitioner Family Medicine 11/28/23 Rachel Storm LPN Licensed Practical Nurse Family Medicine 06/07/24 documented as of this encounter
--- OUTSIDE RECORDS SUMMARY | 2025-05-16 08:22 | XMS_ITS | Encounter Summary ---
Author Organization [facility] Address [id number] [address] [place] [address] Care Team Providers Care Otr Driver Name Role Phone Stefani Colón Jason MEDIA CONSULTANT-CONVENTIONS RESERVATIONIST Primary Care Provider Encounter Details Date Type Department Care Team (Late st Contact Info) Description 05/22/2024 [facility] [address] [address] Amara Dumont RN Moderate persistent asthma without complication Social History Tobacco Use Types Packs/Day Years Used Date Smoking Tobacco: Never Smokeless Tobacco: Never Alcohol Use Standard Drinks/Week Comments Not Currently 0 (1 standard drink = 0.6 oz pur e alcohol) [facility] Utilities Answer Date Recorded In the past 12 months has [employer], gas, oil, or water company threatened to [...] often do you attend chur ch or muslim services? 1 to 4 times per year 09/28/2023 Do you belong to any clubs o r organizations such as quaker groups, unions, fraternal or athletic groups, or [...] Answer Date Recorded Total Score 0 10/01/2023 [facility] of Occupat ional Health - Occupational Stress [...] Recorded Do you need help finding a [facility] career center and/or a training program? No 09/28/2023 Hunger Screening Answer Date Recorded Within the past 12 months we worried whether our food would run out before we got money to buy more. Never True 03/29/2024 Within the past 12 months th e food we bought just didn't last and we didn't have money to get more. Never True 03/29/2024 Purpose - Life Answer Date Recorded I have a purpose and direction in my life. Agree 09/28/2023 Comments No Sex and Gender Information Value Date Recorded Sex Assigned at Female 02/12/2022 10:44 PM EDT Legal Sex Female 11:31 AM EDT Gender Identity Female 04/20/2020 12:29 PM EDT Sexual Orientation Straight 02/12/2022 10 :44 PM EDT documented as of this encounter Plan of Treatment Not on file documented as of this encounter Goals Goal [...] as of this encounter Visit Diagnoses Diagnosis Moderate persistent asthma without complication documented in this encounter Additional Health Concerns Assessment Noted Time PHQ-9 Depression Total Score: 0 10/01/20 23 1:59 PM EST documented as of this encounter Care Teams Otr Driver Relationship Specialty Start Date End Date Stefani Colón, MODESTA-ANTOINETTE [address] [place] [address] PCP - General Nurse Practitioner 03/29/24 documented as of this encounter
--- OUTSIDE RECORDS SUMMARY | 2025-05-16 08:22 | XMS_ITS | Clinical Summary ---
Author Organization [facility] tem Address [id number] [address] [place] [address] Care Team Providers Care Resistor Coater Name Role Phone Stefnai Colón WINE SPECIALIST-ONCOLOGY RN Primary Care Provider Allergies No known active allergies Medications sertraline (ZOLOFT) 50 mg tablet Take 1 tablet (50 mg total) by mouth in the morning. 0 Active multivitamin capsule Take 1 capsule by mouth in the morning. Active LEVEMIR FLEXTOUCH U-100 INSULN 100 unit/mL (3 mL) insulin pen Inject 38 Units under the skin nightly. 3 Active ipratropium-albu teroL (DUONEB) 0.5 mg-3 mg(2.5 mg base)/3 mL nebulizerIndicat ions:Moderate persistent asthma without complication Inhale 3 mL by nebulization every 4 (four) hours as needed for wheezing or shortness of breath. 3 Active Additional Information Patient not taking.Reported on 05/07/2025 levETIRAcetam (KEPPRA) 1000 mg tablet Take 1 tablet (1,000 mg total) by mouth in the morning and 1 tablet (1,000 mg total) before bedtime. 60 tablet 05 3 Active Additional Information Patient not taking.Reported on 05/07/2025 lisinopriL (PRINIVIL,ZESTRI L) 2.5 mg tablet Take 1 tablet (2.5 mg total) by mouth in the morning. 4 Active semaglutide 14 mg tablet Take 14 mg by mouth in the morning. 4 Active alendronate (FOSAMAX) 70 mg tablet Take 1 tablet (70 mg total) by mouth every 7 days. In a.m. with water on empty stomach, nothing else by mouth and remain upright for 30min Active fluticasone furoate-vilanter oL (BREO ELLIPTA) 100-25 mcg/dose blister with deviceIndication s:Moderate persistent asthma without complication Inhale 1 puff in the morning. 60 each 9 4 Active levETIRAcetam (KEPPRA) 1000 mg tabletIndication s:Seizure-like activity (CMS-HCC) Take 1 tablet (1,000 mg total) by mouth in the morning and 1 tablet (1,000 mg total) before bedtime. 5 Active Active Problems Problem Noted Date Diagnosed Date Seizure 10/01/2023 Seizure-like activity 09/29/2023 Altered mental state 09/28/2023 Atrial tachycardia 03/08/2023 Atypical atrial flutter 03/08/2023 Multiple rib fractures 01/01/2023 Frequent UTI 06/03/2022 Overview (05/07/2025): ====05/07/25====Frequent UTIs. 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 She will look in to cranberry and or D mannose supplements Assessment & Plan (05/07/2025 9:56 AM EDT): I explained cystoscopy to her in detail, including the potential risks. She will let the care team coordinator scheduler know if she would prefer to be awake or asleep for the procedure. She will contact the office any time she suspects an infection so that we can have her stop at the lab to leave a urine. She has been referred to Dr. Fung. Cervicogenic headache 06/03/2022 Closed 4-part fracture of proximal end of right humerus 02/24/2022 Type 2 diabetes mellitus wit h hyperglycemia, with long-term current use of insulin 02/13/2022 Closed fracture of right proximal humerus 2021 SHRUTHI (obstructive sleep apnea) 08/20/2020 Pulmonary hypertension 12/12/2019 Moderate persistent asthma without complication 12/12/2019 Nocturnal hypoxemia 12/12/2019 Resolved Problems Problem Noted Date Diagnosed Date Resolved Date Urinary tract infection without hematuria 06/03/2022 07/07/2022 Encounters Date Type Department Care Team Description 05/09/2025 Telephone [facility] [address] [place] [phone] Josie Silverman CMA 05/07/2025 9:00 AM EDT Office Visit [facility] [address] [place] [address] [place] [address] Sosa De La Cruz PA Frequent UTI (Primary Dx) 05/07/2025 Telephone [facility] [address] [place] [address] [place] [address] Sosa De La Cruz PA from Last 3 Months Immunizations Immunization Administration Dates Next Due COVID-19, mRNA, LNP-S, PF, 1 00mcg/0.5mL Dose 12/29/2020,12/01/2020 Influenza High Dose Preservative Free IM 020,07/16/2019,09/17/2018 Influenza, High-dose, Quadrivalent 09/13/2023,,07/19/2021 Influenza, Injectable, quadrivalent (PF) 017 Pneumococcal Conjugate 13-Valent 03/17/2015 Pneumococcal Polysaccharide 10/18/2021, 5 Zoster Vaccine Recombinant 02/08/2019,02/05/2019 Family History Medical History Relation Name Comments Diabetes Father Stroke Father Hypothyroidism Mother Stroke Mother Relation Name Status Comments Father Mother Social History Tobacco Use Types Packs/Day Years Used Date Smoking Tobacco: Never Smokeless Tobacco: Never Tobacco Cessation:Counseling Given: Not Answered Alcohol Use Standard Drinks/Week Comments Not Currently 0 (1 standard drink = 0.6 oz pur e alcohol) [facility] Utilities Answer Date Recorded In the past 12 months has [employer], gas, oil, or water [employer] threatened to shut off services in your [...] often do you attend chur ch or restoration services? 1 to 4 times per year 09/28/2023 Do you belong to any clubs o r organizations such as christian groups, unions, fraternal or athletic groups, or [...] Answer Date Recorded Total Score 0 10/01/2023 [facility] - Occupational Stress Questionnaire Answer Date Recorded [...] Recorded Do you need help finding a [facility] career center and/or a training program? [...] Orientation Straight 02/12/2022 10 :44 PM EDT Last Filed Vital Signs Vital Sign Reading Time Taken Comments Blood Pressure 102/40 11/07/2024 1:44 PM EST Pulse 57 11/07/2024 1:44 PM EST Temperature 36.9 C (98.4 F) 11/07/2024 12:39 PM EST Respiratory Rate 18 11/07/2024 1:44 PM EST Oxygen Saturation 98% 11/07/2024 1:44 PM EST Inhaled Oxygen Concentration - - Weight 80.7 kg (178 lb) 05/07/2025 9:27 AM EDT Height 162.6 cm (5' 4 ) 05/07/2025 9:27 AM EDT Body Mass Index 30.55 05/07/2025 9:27 AM EDT Plan of Treatment Health Maintenance Due Date Last Done Comments DTaP,Tdap and Td Vaccines (1 - Tdap) 1960 Fall Risk Screening 2006 Zoster (Shingles) Vaccine (2 of 2) 04/05/2019 02/08/2019, 02/05/2019 Depression Screening 10/01/2024 10/01/2023 COVID-19 Vaccine (2023-2 5 season) 2025 07/20/2024, 01/02/2024, 02/01/2022, Additional history exists Influenza Vaccine 06/30/2025 09/13/2023, , 07/19/2021, Additional history exists Tobacco Screening 05/07/2026 05/07/2025 Goals Goal Patient Goal Type Associated Problems Recent Progress Patient-Stated? Author home General Yes Jil Howard LSW Note: Evaluation of progress towards goal: under assessment, pt awake & alert/oriented at time of DC planning assessment Return home General Yes Charito Armstrong, RN Note: Evaluation of progress towards goal: Plan to return home with home care. Medical Devices Implanted Type Area Tyre Finisher And Examiner Device Identifier Shelf Expiration Date Model / Serial / Lot Tray Hum Aqls Ascnd Flx +0mm 0mm Cntr Os Shldr Rvrs Strl Lf Ty Cntr Ofst - [id number] - [id number] Implanted:Qty : 1 on 02/24/2022 by Christopher Landaverde MD at [facility] Orthopedic Implant Right: Shoulder [employer] 07/20/2026 [id number] / [id number] / Insert Hum H+6mm 36mm Aqls Ascnd Flx 7.5d Shldr Rvrs 7.5d Rev Rvrs - [id number] - [id number] Implanted:Qty : 1 on 02/24/2022 by Christopher Landaverde MD at [facility] Orthopedic Implant Right: Shoulder [employer] 06/17/2026 [id number] / [id number] / Description:ref [id number] Lateralized Baseplate Offset +3 Mm Ref [id number] Implanted:Qty : 1 on 02/24/2022 by Christopher Landaverde MD at [facility] Right: Shoulder [employer] [id number] 01/21/2027 [id number] / [id number] / Central Screw 6.5 X 35 Mm [id number] Implanted:Qty : 1 on 02/24/2022 by Christopher Landaverde MD at [facility] Right: Shoulder [employer] [id number] / [id number] / Peripheral Screw [id number] Implanted:Qty : 1 on 02/24/2022 by Christopher Landaverde MD at [facility] Right: Shoulder [employer] [id number] / [id number] / Peripheral Screw [id number] 5.0 X 38 Mm Implanted:Qty : 1 on 02/24/2022 by Christopher Landaverde MD at [facility] Right: Shoulder [employer] [id number] / [id number] / Aequalis Flex Revive Ptc Proximal Body Type : 0mm Implanted:Qty : 1 on 02/24/2022 by Christopher Landaverde MD at [facility] Right: Shoulder [employer] 11/03/2026 [id number] / [id number] / Aequalis Flex Revive Ptc Proximal Body Type : 15mm Ref [id number] Implanted:Qty : 1 on 02/24/2022 by Christopher Landaverde MD at [facility] Right: Shoulder [employer] [id number] / [id number] / Aequalis Flex Revive 15 Mm X 90 Mm L Implanted:Qty : 1 on 02/24/2022 by Christopher Landaverde MD at [facility] Right: Shoulder [employer] 12/27/2024 [id number] / [id number] / Tornier Perform Reversed Glenoid Standard Glenosphere 36 Mm Cementless Implanted:Qty : 1 on 02/24/2022 by Christopher Landaverde MD at [facility] Right: Shoulder [employer] 01/19/2027 [id number] / [id number] / Aequalis Flex Revive Locking Cap Implanted:Qty : 1 on 02/24/2022 by Christopher Landaverde MD at [facility] Right: Shoulder [employer] 10/06/2026 [id number] / [id number] / Description:Aequalis Flex Re vive locking cap SN : [id number] ref : [id number] Insurance MEDICARE [facility] Advance Directives Documents on File Type Date Recorded Patient Career Consultant Expl anation Advance Directive 09/28/2023 12:51 PM Durable Power of Dowel Sticker Operator 06/09/2022 8:22 AM Living Will 06/09/2022 8:22 AM DNR Physician Order 06/09/2022 8:21 AM Durable Power of Dowel Sticker Operator 06/01/2022 9:38 AM PHME PAP CMN 11-10-2 1 Living Will 05/04/2022 3:34 PM Durable Power of Dowel Sticker Operator 05/04/2022 3:34 PM Durable Power of Dowel Sticker Operator 04/21/2022 12:16 PM POA 04/21/22 Living Will 04/21/2022 12:15 PM LIVING [place] LL 04/21/22 DNR Physician Order 02/18/2022 2:25 PM * DNR Comfort Care Arrest (DNR-CCA) [place]er (Latest Code Status on File) Date Activated Date Inactivated Comments 10/01/2023 12:41 PM 10/05/2023 1:42 PM * Full Code Date Activated Date Inactivated Comments 10/01/2023 12:40 PM 10/01/2023 12:41 PM * DNR Comfort Care Arrest (DNR-CCA) [place] Date Activated Date Inactivated Comments 09/28/2023 2:47 PM 10/01/2023 12:39 PM * DNR Comfort Care Arrest (DNR-CCA) [place]er Date Activated Date Inactivated Comments 09/28/2023 12:49 PM 09/28/2023 2:47 PM * Full Code Date Activated Date Inactivated Comments 01/01/2023 3:23 AM 01/05/2023 8:36 PM Care Teams Resistor Coater Relationship Specialty Start Date End Date Stefani Colón APRN-ONCOLOGY RN [address] [place] [address] PCP - General Nurse Practitioner 03/29/24
--- OUTSIDE RECORDS SUMMARY | 2025-05-16 08:22 | XMS_ITS | Encounter Summary ---
Author Organization [facility] Address [address] [place] [address] Care Team Providers Care Supervisor Parking Lot Name Role Phone Nancy Rios MD Primary Care Provider [phone] Stefani Colón AWNING FRAME MAKER Unavailable [phone] Rachel Storm LPN Unavailable [phone] Encounter Details Date Type Department Care Team (Late st Contact Info) Description 05/05/2025 Abstract [facility] [address] [facility] [place] [address] Joshua [place], [place] Social History Tobacco Use Types Packs/Day Years [...] week 11/18/2024 How often do you attend [facility] or yarsanism services? More than 4 times per year 11/18/2024 Do you belong to any clubs o r organizations such as amish groups, unions, fraternal or athletic groups, or [...] Recorded Patient Health Questionnaire-2 Score 0 11/19/2024 [facility] - Occupational Stress [...] any time in the past 12 m [place], were you homeless or living in a residential (including now)? No 11/18/2024 Comments No Sex [...] EDT Office Visit [facility] [address] [place] [phone] Stefani Colón NP [address] [place] [address] 05/21/2025 1:20 PM EDT Office Visit [facility] [address] [facility] [place] [address] Nupur Landon PA [address] [facility] [address] [place], [place] [id number] 07/17/2025 10:15 AM EDT Procedure Visit [facility] [address] [place] [phone] Saman Vallecillo DPM [address] [place] [address] documented as of this encounter Goals Goal [...] documented as of this encounter Care Teams Supervisor Parking Lot Relationship Specialty Start Date End Date Nancy Rios MD [address] [place], [place] [phone] PCP - General Family Medicine 11/28/23 Stefani Colón NP [address] [place], [place] [phone] Nurse Practitioner Family Medicine 11/28/23 Rachel Storm LPN Licensed Practical Nurse Family Medicine 06/07/24 documented as of this encounter
--- OUTSIDE RECORDS SUMMARY | 2025-05-16 08:22 | XMS_ITS | Clinical Summary ---
Author Organization [facility] Address [address] [place] [address], [address] [place] [address] Care Team Providers Care Hatchery Man Name Role Phone Unknown, Provider Primary Care Provider Unavaila ble Social History Tobacco Use Types Packs/Day Years Used Date Smoking Tobacco: Never Assessed Comments Unknown Sex and Gender Information Value Date Recorded Sex Assigned at Not on file Legal Sex Female 10:57 PM EST Gender Identity Not on file Sexual Orientation Not on file Plan of Treatment Health Maintenance Due Date Last Done Comments DTaP/Tdap/Td vaccine (1 - Tdap) 1959 Respiratory Syncytial Virus (RSV) or age 60 yrs+ (1 - 1-dose 75+ series) 2016 COVID-19 Vaccine (2023-2 5 season) 2024 Flu vaccine (#1) 05/30/2025 Polio vaccine Aged Out No longer elig ibroman based on patient's age to complete this topic Care Teams Hatchery Man Relationship Specialty Start Date End Date Unknown, Provider PCP - General 10/05/23
--- OUTSIDE RECORDS SUMMARY | 2025-05-16 08:22 | XMS_ITS | Clinical Summary ---
Author Organization [facility] Address [address] [place] [address] Care Team Providers Care Gang Punch Operator Name Role Phone Josue William Primary Care Provider Allergies No known active allergies Medications GLYBURIDE 2.5 MG TAB Take one(1) tablet daily. 0 11/19/2007 Active sertraline hcl(ZOLOFT 100 MG TAB) Take one(1) tablet daily. 0 11/19/2007 Active ascorbic acid(VITAMIN C 500 MG TAB) Take one(1) tablet daily. 0 11/19/2007 Active VITAMIN E 400 UNIT CAP Take one(1) tablet twice daily. 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 had glaucoma, DM. Mother Alive massive stroke. Other Other 2nd of multiple myeloma. Social History Tobacco Use Types Packs/Day Years Used Date Smoking Tobacco: Never Assessed Alcohol Use Standard Drinks/Week Comments Not Asked 0 (1 standard drink = 0.6 oz pur e alcohol) Comments No Sex and Gender Information Value Date Recorded Sex Assigned at Not on file Legal Sex Female 8:11 AM EST Gender Identity Not on file Sexual Orientation Not on file Last Filed Vital Signs Vital Sign Reading Time Taken Comments Blood Pressure 152/70 11/19/2007 10:10 AM EST Pulse 72 11/19/2007 10:10 AM EST Temperature 37 C (98.6 F) 11/19/2007 10:10 AM EST Respiratory Rate 20 11/19/2007 10:10 AM EST Oxygen Saturation - - Inhaled Oxygen Concentration - - Weight 88 kg (194 lb) 11/19/2007 10:10 AM EST Height 160 cm (5' 3 ) 11/19/2007 10:10 AM EST Body Mass Index 34.37 11/19/2007 10:10 AM EST Plan of Treatment Health Maintenance Due Date Last Done Comments Anxiety Screening 1959 Depression Screening 1959 DTaP,Tdap,Td Vaccine (1 - Tdap) 1960 Diabetes Screening 1986 Pneumococcal Vaccine: 50+ (1 of 1 - PCV) 1991 Shingrix Vaccine (1 of 2) 1991 Bone Density Screening 2006 RSV Vaccine (1 - 1-dose 75+ series) 2016 Covid-19 Vaccine (1 - season) 2024 Advance Directive Discussion 10/30/2024 Influenza Vaccine (#1) 2025 Insurance MEDICARE PPO Care Teams Gang Punch Operator Relationship Specialty Start Date End Date Josue William PCP - General Family Medicine 03/16/11
--- OUTSIDE RECORDS SUMMARY | 2025-05-16 08:22 | XMS_ITS | Encounter Summary ---
Author Organization [facility] Address [id number] [address] [place] [address] Care Team Providers Care Synchro Assembler Name Role Phone Stefani Colón Jason SEWER HAND-MANAGER INTEGRATION Primary Care Provider Encounter Details Date Type Department Care Team (Late st Contact Info) Description 05/09/2025 Telephone [facility] [address] [place] [address] Josie Silverman CMA Social History Tobacco Use Types Packs/Day Years Used Date Smoking Tobacco: Never Smokeless Tobacco: Never Alcohol Use Standard Drinks/Week Comments Not Currently 0 (1 standard drink = 0.6 oz pur e alcohol) [facility] Utilities Answer Date Recorded In the past 12 months has [employer], gas, oil, or water [employer] threatened to shut off services in your [...] often do you attend chur ch or gnosticist services? 1 to 4 times per year [...] Answer Date Recorded Total Score 0 10/01/2023 [facility] - Occupational Stress [...] Recorded Do you need help finding a [facility] career center and/or a training program? [...] PM EDT documented as of this encounter Miscellaneous Notes * Telephone Encounter - Josie Silverman CMA - 05/09/2025 9:58 AM EDT Patient called in stating she will not be coming back to urology [place]. * Telephone Encounter - ODELL Jara - 05/09/2025 9:58 AM EDT Josie: Ok. Please wish her well for me. She should establish care with a Urologist there and let usknow if we need to send her records. Rosanne: Please disregard the cystoscopy order * Telephone Encounter - Rosanne Broussard - 05/09/2025 9:58 AM EDT noted documented in this encounter Plan of Treatment Not on [...] filedocumented in this encounter Additional Health Concerns Assessment Noted Time PHQ-9 Depression Total Score: 0 10/01/20 23 1:59 PM EST documented as of this encounter Care Teams Synchro Assembler Relationship Specialty Start Date End Date Stefani Colón, SEWER HAND-MANAGER INTEGRATION [address] [place] [address] PCP - General Nurse Practitioner 03/29/24 documented as of this encounter
--- OUTSIDE RECORDS SUMMARY | 2025-05-16 08:22 | XMS_ITS | Encounter Summary ---
Author Organization [facility] Address [address] [place] [address] Care Team Providers Care Geriatric Care Manager Name Role Phone Nancy Rios MD Primary Care Provider [phone] Stefani Colón RENTAL SALES ASSOCIATE Unavailable [phone] Rachel Storm LPN Unavailable [phone] Encounter Details Date Type Department Care Team (Late st Contact Info) Description 04/15/2025 Results Follow-Up [facility] [address] [place] [address] Nova Muñoz LPN [address] [place] [address] Social History Tobacco Use Types Packs/Day Years [...] often do you attend chur ch or protestant services? More than 4 times per year 11/18/2024 Do you belong to any clubs o r organizations such as scientology groups, unions, fraternal or athletic groups, or [...] Recorded Patient Health Questionnaire-2 Score 0 11/19/2024 [facility] Occupat ional Health - Occupational Stress [...] any time in the past 12 m [facility], were you homeless or living in a jail (including now)? No 11/18/2024 Comments No Sex and Gender Information Value Date Recorded Sex Assigned at Not on file Legal Sex Female 7:07 PM EDT Gender Identity Not on file Sexual Orientation Not on file documented as of this encounter Miscellaneous Notes * Result Encounter Note - Nova Muñoz LPN - 04/15/2025 2:31 PM EDT Pt notified and would like to get procedure done. Pt transferred to [facility] to get scheduled. documented in this encounter Plan of Treatment Upcoming Encounters Date Type Department Care Team (Late st Contact Info) Description 05/21/2025 9:00 AM EDT Office Visit [facility] [address] [place] [phone] Stefani Colón NP [address] [place] [address] 05/21/2025 1:20 PM EDT Office Visit [facility] [address] [facility] [place] [address] Nupur Landon PA [address] [facility] [address] [place], [place] [phone] 07/17/2025 10:15 AM EDT Procedure Visit [facility] [address] [place] [phone] Saman Vallecillo DPM [address] [address] documented as of this encounter Goals Goal [...] documented as of this encounter Care Teams Geriatric Care Manager Relationship Specialty Start Date End Date Nancy Rios MD [address] [place], [place] [phone] PCP - General Family Medicine 11/28/23 Stefani Colón NP [address] [place], [place] [id number] Nurse Practitioner Family Medicine 11/28/23 Rachel Storm LPN Licensed Practical Nurse Family Medicine 06/07/24 documented as of this encounter
--- OUTSIDE RECORDS SUMMARY | 2025-05-16 08:22 | XMS_ITS | Encounter Summary ---
Author Organization [employer] [facility] tem Address [facility] [id number] [address] [place] [address] Care Team Providers Care Circular Head Saw Operator Name Role Phone Eldon Stefani A STORAGE WORKER-BLOW MOULDING MACHINE OPERATOR Primary Care Provider Reason for Referral * Consultation (Routine) - Pending Review Specialty Diagnoses / Procedures Referred By Vlad jordan Referred To Contact Otolaryngology Diagnoses Acoustic neuroma ([facility]) Dennys Abrams MD [address] [place] [address] [address] [place] [address] Phone: tel: fax: Omar Medina W, [address] [place] [phone] Phone: tel: fax: Referral ID Status Reason Start Date Expiration Date Visits Requested Visits Authorized [id number] Pending Review Specialty Services Required 06/28/2024 06/28/2025 1 1 Reason for Visit * Reason Onset Date Comments received message 06/07/2024 Encounter Details Date Type Department Care Team ([facility] st Contact Info) Description 06/07/2024 Telephone [facility] Neurology [address] [place] [phone] Yuki Cortez received message Social History Tobacco Use Types Packs/Day Years Used Date Smoking Tobacco: Never Smokeless Tobacco: Never Alcohol Use Standard Drinks/Week Comments Not Currently 0 (1 standard drink = 0.6 oz pur e alcohol) [facility] Utilities Answer Date Recorded In the [...] often do you attend chur ch or yarsanism services? 1 to 4 times per year 09/28/2023 Do you belong to any clubs o r organizations such as samaritan groups, unions, fraternal or athletic groups, or [...] Answer Date Recorded Total Score 0 10/01/2023 [facility] of Occupat ional Health - Occupational Stress [...] Recorded Do you need help finding a [facility] career center and/or a training program? No [...] encounter Miscellaneous Notes * Telephone Encounter - Yuki Cortez - 06/07/2024 2:28 PM EDT Patient called and stated she received a message from Dr. Abrams but she was unsure what it was regarding. She added that if it was about scheduling her ENT appointment she is unable to go to [facility] and would needs a referral for someone in the [facility]. She asked for a call back at [phone] * Telephone Encounter - Dennys Abrams MD - 06/07/2024 2:28 PM EDT I was not able to find an ENT in the [place] area. The closest ENT physician would be in [place] which I placed a referral for. I would advise that she may be able to do a tele-visit withENT through [facility] as well if that would be more convenient for her. Thanks! EMMY * Telephone Encounter - Rebeca Miller CMA - 06/07/2024 2:28 PM EDT LVM for Patient. documented in this encounter Plan of Treatment Scheduled Referrals Name Type Priority Associated Diagnoses Order Schedule Ambulatory referral to ENT (Non-[facility]) Outpatient Referral Routine Acoustic neuroma (CMS-HCC) 1 Occurrences starting 06/28/2024 until 06/28/2025 documented as of this encounter Goals Goal [...] as of this encounter Visit Diagnoses Diagnosis Acoustic neuroma (CMS-HCC)- Primary Benign neoplasm of cranial nerves documented in this encounter Additional Health Concerns Assessment Noted Time PHQ-9 Depression Total Score: 0 10/01/20 23 1:59 PM EST documented as of this encounter Care Teams Circular Head Saw Operator Relationship Specialty Start Date End Date Stefani Colón APRN-BLOW MOULDING MACHINE OPERATOR [address] [place] [address] PCP - General Nurse Practitioner 03/29/24 documented as of this encounter
--- OUTSIDE RECORDS SUMMARY | 2025-05-16 08:22 | XMS_ITS | Encounter Summary ---
Author Organization [employer] tem Address [id number] [address] [place] [address] Care Team Providers Care Land Examiner Name Role Phone Stefani Colón Jason ESTHETICIAN-PERINATAL SOCIAL WORKER Primary Care Provider Encounter Details Date Type Department Care Team (Late st Contact Info) Description 08/06/2024 [facility] [address] [phone] Amara Dumont RN Social History Tobacco Use Types Packs/Day Years Used Date Smoking Tobacco: Never Smokeless Tobacco: Never Alcohol Use Standard Drinks/Week Comments Not Currently 0 (1 standard drink = 0.6 oz pur e alcohol) [facility] Utilities Answer Date Recorded In the past 12 months has [employer], gas, oil, or water company threatened [...] often do you attend chur ch or worship services? 1 to 4 times per year [...] Answer Date Recorded Total Score 0 10/01/2023 [facility] of Occupat ional Health - Occupational Stress [...] encounter Miscellaneous Notes * Telephone Encounter - Amara Dumont RN - 08/06/2024 3:18 PM EDT Patient called nurse line and left message requesting a return call. Missing Persons Investigator returned call. No answer. Left message for patient to contact office with any questions/concerns. Left office phone number for reference. documented in this encounter Plan of Treatment [...] documented as of this encounter Care Teams Land Examiner Relationship Specialty Start Date End Date Stefani Colón APRN-ANTOINETTE [address] [place] [address] PCP - General Nurse Practitioner 03/29/24 documented as of this encounter
--- OUTSIDE RECORDS SUMMARY | 2025-05-16 08:22 | XMS_ITS | Encounter Summary ---
Author Organization [employer] tem Address [id number] [address] [place] [address] Care Team Providers Care Air Control Electronics Operator Name Role Phone RiriStefani lewis Jason TIRE CENTER MANAGER-PROJECT ENGINEER Primary Care Provider Encounter Details Date Type Department Care Team (Late st Contact Info) Description 05/07/2025 Telephone [facility] [address] [place] [address] [place] [address] [address] Sosa De La Cruz I, ODELL [address] [place] [address] Social History Tobacco Use Types Packs/Day Years Used Date Smoking Tobacco: Never Smokeless Tobacco: Never Alcohol Use Standard Drinks/Week Comments Not Currently 0 (1 standard drink = 0.6 oz pur e alcohol) [facility] Utilities Answer Date Recorded In the past 12 months has [employer], gas, oil, or water [employer] threatened to shut off services in your [...] often do you attend chur ch or voodoo services? 1 to 4 times per year [...] Answer Date Recorded Total Score 0 10/01/2023 [facility] of Occupat ional Health - Occupational Stress [...] Recorded Do you need help finding a [facility] career center and/or a training program? No [...] encounter Miscellaneous Notes * Telephone Encounter - ODELL Jara - 05/07/2025 9:53 AM EDT Please schedule her for cystoscopy / possible bilateral retrograde pyelograms/ [facility] instillation with Dr. Fung in [place]. She will let you know if she would prefer to be under local anesthesia or MAC. If she is going under local anesthesia, I told her I could send in a dose of Valium if she felt she would tolerate better. Dx: Frequent Urinary tract infection * Telephone Encounter - Rosanne Broussard - 05/07/2025 9:53 AM EDT Images from the original note were not included. ODELL Jara 05/09/25 10:32 AM Note Josie: Ok. Please wish her well for me. She should establish care with a Urologist there and let usknow if we need to send her records. Rosanne: Please disregard the cystoscopy order 05/09/25 9:59 AM Josie Silverman CMA routed this conversation to ODELL Jara CMA KW 05/09/25 9:59 AM Note Patient called in stating she will not be coming back to urology as within 30 days she is moving [place] & will follow up with someone then. documented in this encounter Plan of Treatment [...] documented as of this encounter Care Teams Air Control Electronics Operator Relationship Specialty Start Date End Date Stefani Colón, MODESTA-PROJECT ENGINEER [address] [place] [address] PCP - General Nurse Practitioner 03/29/24 documented as of this encounter
--- OUTSIDE RECORDS SUMMARY | 2025-05-16 08:22 | XMS_ITS | Clinical Summary ---
Author Organization [facility] Address [address] [place] [address] Phone Care Team Providers Care Deburrer Machine Name Role Phone Unavailable Primary Care Provider Unavailabl e Social History Tobacco Use Types Packs/Day Years Used Date Smoking Tobacco: Never Assessed Comments Unknown Sex and Gender Information Value Date Recorded Sex Assigned at Not on file Legal Sex Female 7:45 AM EST Gender Identity Not on file Sexual Orientation Not on file Plan of Treatment Health Maintenance Due Date Last Done Comments Lipid Panel 1940 Yearly Adult Physical 1940 Diabetes Screening 1959 Hepatitis A Vaccines (1 of 2 - Risk 2-dose series) 1960 DTaP/Tdap/Td Vaccines (1 - Tdap) 1963 Hepatitis B Vaccines (1 of 3 - Risk 3-dose series) 2001 RSV High Risk: (Elderly (60+) or Population) (1 - 1-dose 75+ series) 2016 Zoster Vaccines (2 of 2) 04/05/2019 02/08/2019 Bone Density Scan 06/04/2023 06/04/2021 COVID-19 Vaccine ( season) 2024 01/02/2024, 02/01/2022, 09/21/2021, Additional history exists Influenza Vaccine (#1) 2025 3, 08/02/2022, 07/19/2021, Additional history exists Pneumococcal Vaccine Completed 10/18/2021, 03/17/2015, 10/30/2004 HIB Vaccines Aged Out No longer eligi ble based on patient's age to complete this topic HPV Vaccines Aged Out No longer eligi ble based on patient's age to complete this topic IPV Vaccines Aged Out No longer eligi ble based on patient's age to complete this topic Meningococcal Vaccine Aged Out No priscilla ralph eligible based on patient's age to complete this topic Rotavirus Vaccines Aged Out No longer eligible based on patient's age to complete this topic
--- OUTSIDE RECORDS SUMMARY | 2025-05-16 08:22 | XMS_ITS | Encounter Summary ---
Author Organization [facility] Address [id number] [address] [place] [address] Care Team Providers Care Paraffin Machine Operator Name Role Phone Stefani Colón Jason TRANSPORTER DRIVER-HAND CEMENTER Primary Care Provider Reason for Visit * Reason Comments Med Refill Encounter Details Date Type Department Care Team (Late st Contact Info) Description 09/14/2021 Refill [facility] Pulmonary/Sleep Medicine [address] [place] [address] Holley Hollins, DO [address] [id number] Moderate persistent asthma without complication Social History Tobacco Use Types Packs/Day Years Used Date Smoking Tobacco: Never Smokeless Tobacco: Never Alcohol Use Standard Drinks/Week Comments Not Currently 0 (1 standard drink = 0.6 oz pur e alcohol) [facility] Answer Date Recorded Frequency of Alcohol Consumption Never 12/12/2019 Average Number of Drinks Not on file 020 Frequency of Binge Drinking Not on file 11/30 Childcare Answer Date Recorded Childcare Unknown 04/10/2019 Employment Answer Date Recorded Employment Unknown 04/10/2019 Purpose - Life Answer Date Recorded Purpose and direction in life Unknown Comments Unknown Sex and Gender Information Value Date Recorded Sex Assigned at Female 02/12/2022 10:44 PM EDT Legal Sex Female 11:31 AM EDT Gender Identity Female 04/20/2020 12:29 PM EDT Sexual Orientation Straight 02/12/2022 10 :44 PM EDT documented as of this encounter Plan of Treatment Not on file documented as of this encounter Visit Diagnoses Diagnosis Moderate persistent asthma without complication documented in this encounter Additional Health Concerns Infection Onset Date Last Indicated Resolved Time COVID-19 Rule-Out 05/31/2022 05/31/2022 05/31/2022 10:32 AM EDT COVID-19 Rule-Out 06/03/2022 06/03/2022 06/03/2022 1:37 PM EDT COVID-19 Rule-Out 09/28/2023 09/28/2023 09/28/2023 5:54 PM EST documented as of this encounter Care Teams Paraffin Machine Operator Relationship Specialty Start Date End Date Stefani Colón APRN-ANTOINETTE [address] [place] [address] PCP - General Nurse Practitioner 03/29/24 documented as of this encounter
--- OUTSIDE RECORDS SUMMARY | 2025-05-16 08:22 | XMS_ITS | Clinical Summary ---
Author Organization [facility] Address [address] [place] [address] Care Team Providers Care Cad Drafter Name Role Phone Nancy Rios MD Primary Care Provider [phone] Stefani Colón NP Unavailable [phone] Rachel Storm LPN Unavailable Allergies No known active allergies Medications Multiple Vitamin (Multivitamin Adult) tablet Take 1 tablet by mouth 1 (one) time each day at the same time Active glucose blood (OneTouch Verio) test strip Active levETIRAcetam (Keppra) 1000 MG tablet Take 1,000 mg by mouth in the morning and 1,000 mg before bedtime. Active Breo Ellipta 100-25 MCG/ACT aerosol powder 12/13/19 24 Active insulin pen needle (Droplet Pen [place]) 31G x 5 mm miscIndications:Type 2 diabetes mellitus with hyperglycemia, without long-term current use of insulin (HCC) Use as instructed 100 each 5 06/27/20 24 Active alendronate (Fosamax) 70 MG tabletIndications:Ag e-related osteoporosis without current pathological fracture Take 1 tablet (70 mg) by mouth 1 (one) time per week 12 tablet 1 11/20/19 25 Active lisinopril 2.5 MG tabletIndications:Ty pe 2 diabetes mellitus with hyperglycemia, with long-term current use of insulin (HCC) TAKE 1 TABLET DAILY 90 tablet 1 11/22/19 25 Active sertraline (Zoloft) 100 MG tabletIndications:Re current major depression in partial remission TAKE 1 TABLET BY MOUTH EVERY DAY 90 tablet 1 01/26/20 25 Active Lantus SoloStar 100 UNIT/ML penIndications:Diabe jessica mellitus with microalbuminuric diabetic nephropathy (HCC) INJECT 45 UNITS UNDER THE SKIN DAILY 40 mL 1 03/17/20 25 Active Active Problems Problem Noted Date Diagnosed Date Seizure 10/01/2023 Assessment & Plan (01/24/2024 10:05 AM EDT): On Keppra. 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 Declined BiPAP therapy. Wearing supplemental oxygen while sleeping. Osteoarthritis involving mul tiple joints on both sides of body 03/06/2023 Primary hypertension 03/06/2023 Assessment & Plan (01/24/2024 10:05 AM EDT): Discussed current management plan. Goal BP less then 130/80. Discussed heart healthy diet, increase fruits and vegetables, limit salt intake. Encouraged increase physical exercise, try to be as active as possible at least 150 mins per week. Importance of weight management with a goal BMI less then 27 discussed. Discussed complications of uncontrolled blood pressure. Patient instructed to monitor BP's 1-2 times a week, keep a log, and bring to next visit. Barriers to care and medication compliance discussed. Patient voices understanding of meds. Recurrent major depressive disorder, in partial remission 03/06/2023 Cervicogenic headache 06/03/2022 Moderate persistent asthma without complication 12/12/2019 Assessment & Plan (01/24/2024 10:05 AM EDT): Stable with inhalant therapy. 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 Resolved Problems Problem Noted Date Diagnosed Date Resolved Date Aphasia 03/06/2023 01/24/2024 Dependence on other enabling machines and devices 03/06/2023 11/19/2024 Fatty liver 03/06/2023 11/19/2024 Moderate episode of recurren t major depressive disorder 03/06/2023 01/24/2024 Reactive airway disease 03/06/202312/29 Splenomegaly 03/06/2023 11/19/2024 Multiple rib fractures 01/01/202301/23 Closed 4-part fracture of pr oximal end of right humerus 02/24/2022 01/24/2024 Closed fracture of right proximal humerus 02/12/2022 01/24/2024 Mild intermittent asthma 10/12/2018 halfway current use of insulin 11/21/2016 01/24/2024 Encounters Date Type Department Care Team Description 05/05/2025 Abstract [facility] [address] [place] [address] [place] [phone] Anh Lewis MA 04/30/2025 Clinisync Result Encounter [facility] External Department Unsolicited Jaylen Malagon DO 04/30/2025 Results Follow-Up [facility] [address] [facility] [place] [phone] Stefani Colón NP 04/30/2025 Clinisync Result Encounter [facility]OMS External Department Unsolicited Jaylen Malagon DO 04/30/2025 Clinisync Result Encounter [facility] External Department Unsolicited Jaylen Malagon, 04/28/2025 Patient Outreach [facility] [place] [address] Rachel Storm, AS400 ANALYST 04/23/2025 3:30 PM EDT Consult [facility] [address] [place] [address] Jaylen Malagon, Pre-op examination; Pelvic pain; Uterine leiomyoma, unspecified location; Uterine polyp 04/23/2025 Abstract [facility] [address] [place] [address] Jaylen Malagon, 04/15/2025 Results Follow-Up [facility] [address] [place] [address] Nova Muñoz, AS400 ANALYST 04/14/2025 1:00 PM EDT Ancillary Procedure [facility] [address] [place] [address] Uterine leiomyoma, unspecified location; Pelvic fluid collection 04/09/2025 Orders Only [facility] [address] [place] [address] Jaylen Malagon DO Uterine leiomyoma, unspecified location; Pelvic fluid collection 04/07/2025 9:00 AM EDT Office Visit [facility] [address] [place] [address] Jaylen Malagon, Encounter for consultation; Uterine leiomyoma, unspecified location 04/07/2025 Telephone [facility] [address] [place] [address] Nancy Rios MD DM Education referral 04/07/2025 Bamboo flowsheet [facility] [address] [place] [address] Jaylen Malagon, 04/02/2025 Results Follow-Up [facility] [address] [place] [phone] Stefani Colón NP 04/01/2025 3:00 PM EDT Ancillary Procedure [facility] [place] [address] [place] [address] Generalized abdominal pain 04/01/2025 1:30 PM EDT Office Visit [facility] [address] [place] [phone] Stefani Colón NP Generalized abdominal pain (Primary Dx); 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); Obesity (BMI 30.0-34.9) 04/01/2025 Travel 03/25/2025 10:30 AM EDT Procedure Visit [facility] [address] [place] [address] Saman Vallecillo DPJasmeet Dermatophytosis of nail (Primary Dx); Dystrophic nail; Pain around toenail, right foot; Pain around toenail, left foot 03/25/2025 Bamboo flowsheet [facility] [address] [place] [phone] Saman Vallecillo DPM 03/25/2025 Travel 03/20/2025 Telephone [facility] [address] [place] [phone] Nancy Rios MD 03/19/2025 Patient Outreach [facility] [address] [place] [address] Rachel Storm LPN 03/18/2025 Telephone [facility] [address] [place] [phone] Nancy Rios MD 03/17/2025 Refill [facility] [address] [facility] [place] [phone] Stefani Colón NP 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) 03/03/2025 Telephone [facility] [address] [facility] [place] [phone] Beth Valera MA 02/25/2025 Telephone [facility] [place] [id number] [facility] [place] [phone] Nancy Rios MD 02/25/2025 Results Follow-Up [facility] [place] [id number] [facility] [place] [phone] Stefani Colón NP 02/24/2025 8:15 AM EDT Clinical Support [address] [place] [phone] 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) (Primary Dx); Frequent UTI 02/24/2025 Travel 02/19/2025 8:30 AM EDT Office Visit [facility] [place] [id number] [facility] [place] [phone] Stefani Colón NP Mild cognitive impairment (Primary Dx); 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); Diarrhea, unspecified type; Frequent UTI 02/19/2025 Bamboo flowsheet [facility] [place] [id number] [facility] [place] [phone] Stefani Colón NP 02/19/2025 Travel from Last 3 Months Immunizations Immunization Administration Dates Next Due Influenza, High Dose Seasona l, Preservative Free 08/02/2017 Influenza, High-dose Seasona l, Quadrivalent, Preservative Free 09/13/2023,08/02/2022,07/19/2021,09/10,07/16/2019,09/17/2018 Pneumococcal Conjugate PCV 13 03/17/2015 Pneumococcal Polysaccharide PPSV23 10/18/2021, Zoster, Recombinant 02/08/2019 Family History Medical History Relation Name Comments Multiple myeloma Brother No Known Problems Daughter Diabetes Father Hypothyroidism Mother Stroke Mother Relation Name Status Comments Brother Daughter Alive Father Mother Social History Tobacco Use Types Packs/Day Years Used Date Smoking Tobacco: Never Smokeless Tobacco: Never Tobacco Cessation:Counseling Given: Not Answered Alcohol Use Standard Drinks/Week Comments Never 0 [...] 11/18/2024 How often do you attend chur or methodist services? More than 4 times per year 11/18/2024 Do you belong to any clubs o r organizations such as yazidism groups, unions, fraternal or athletic groups, or [...] any time in the past 12 m [facility], were you homeless or living in a skilled nursing (including now)? No 11/18/2024 Comments No Sex and Gender Information Value Date Recorded Sex Assigned at Not on file Legal Sex Female 7:07 PM EDT Gender Identity Not on file Sexual Orientation Not on file Last Filed Vital Signs Vital Sign Reading Time Taken Comments Blood Pressure 142/86 04/23/2025 3:53 PM EDT Pulse 90 04/01/2025 1:28 PM EDT Temperature 36.4 C (97.6 F) 11/19/2024 11:59 AM EST Respiratory Rate 18 02/07/2025 12:47 PM EDT Oxygen Saturation 97% 04/01/2025 1:28 PM EDT Inhaled Oxygen Concentration - - Weight 84.7 kg (186 lb 12 oz) 04/23/2025 3:53 PM EDT Height 159.4 cm (5' 2.75 ) 04/01/2025 1:28 PM ED T Body Mass Index 33.35 04/01/2025 1:28 PM EDT Plan of Treatment Upcoming Encounters Date Type Department Care Team (Late st Contact Info) Description 05/21/2025 9:00 AM EDT Office Visit [facility] [address] [place] [address] Stefani Colón NP [address] [place], [place] [phone] 05/21/2025 1:20 PM EDT Office Visit [facility] [address] [place] [address] Nupur Landon PA [address] [place] [address] 07/17/2025 10:15 AM EDT Procedure Visit [facility] [address] [place] [address] Saman Vallecillo DPM [address] [place], [place] [phone] Health Maintenance Due Date Last Done Comments Diabetes: Retinopathy Screening 03/26/2025 03/26/2024, 09/13/2022, 09/13/2022, Additional history exists Diabetes: Hemoglobin A1C 05/09/2025 025, 11/06/2024, 06/12/2024, Additional history exists Influenza Vaccine (#1) 2025 3, 08/02/2022, 07/19/2021, Additional history exists Medicare Annual Wellness (AWV) 11/19/2025 0 11/19/2024, 11/19/2024, 09/13/2023, Additional history exists Diabetes: Urine Protein Screening 02/24/2026 02/24/2025, 01/23/2024, 05/29/2020, Additional history exists Pneumococcal Vaccine: 65+ Years Completed 10/18/2021, 03/17/2015, 10/30/2004 Goals Goal Patient Goal Type Associated Problems Recent Progress Patient-Stated? Author Help patient manage antidepressant medication Care Plan Patient on antidepressant monitoring plan No Stefani Colón NP Baseline PHQ-9 Care Plan Baseline PHQ-9 No Stefani Colón NP Procedures Procedure Name Priority Date/Time Associated Diagnosis Comments XR CHEST 2V 04/30/2025 12:32 PM EDT [facility] APTT Routine 04/30/2025 12:05 PM EDT [facility] PROTHROMBIN TIME INR W/O COUM Routine 04/30/2025 12:05 PM EDT ALL BASIC METABOLIC PANEL Routine 04/30/2025 12:05 PM EDT ALL CBC WITH AUTO DIFF Routine 04/30/2025 12:05 PM EDT ECG 12-LEAD 04/30/2025 9:58 AM EDT US PELVIC COMPLETE W/ TV Routine 04/14/2025 1:39 PM EDT Uterine leiomyoma, unspecified location Pelvic fluid collection CT ABDOMEN PELVIS WO IV CONTRAST Routine 04/01/2025 3:34 PM EDT Generalized abdominal pain MICROALBUMIN / CREATININE URINE RATIO Routine 02/24/2025 8:23 AM EDT 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) POCT URINALYSIS DIPSTICK Routine 02/24/2025 8:14 AM EDT Frequent UTI POCT GLYCATED HEMOGLOBIN, TOTAL Routine 02/07/2025 1:01 PM EDT 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) DIABETIC RETINOPATHY SCREENING - OU - BOTH EYES Routine 03/26/2024 1:38 PM EDT from Last 3 Months or Most Recently Relevant to Health Maintenance Results * XR CHEST 2V (04/30/2025 12:32 PM EDT) Anatomical Region Laterality Modality Other 04/30/2025 12:3 2 PM EDT Narrative 04/30/2025 12:34 PM EDT The [address] [address] XRay Report Signed Patient: FAROOQ JIANG MR#: [id number] : 1940 Acct:[id number] Age/Sex: 84 / F ADM Date: 04/30/25 Loc: PST Attending Dr: Jaylen Malagon D.O. Ordering Physician: Jaylen Malagon D.O. Date of Service: 04/30/25 Procedure(s): XR chest 2V Accession Number(s): [id number] cc: Jaylen Malagon D.O.; Stefani Colón NP The [place] [id number] Patient Name: FAROOQ JIANG MRN: [id number] date: 1940 Sex: F Assigned Patient Location: [facility] Current Patient Location: [facility] Accession/Order Number: [id number] Exam Date: 04/30/2025 12:32 Report Date: 04/30/2025 12:32 At the request of: JAYLEN MALAGON DO Procedure: XR chest 2V Chest 2 views CLINICAL HISTORY: Pre Op COMPARISON: None FINDINGS: Heart normal in size. Presumably remote posttraumatic changes involving the right rib cage. No lung consolidation pneumothorax pleural effusion or free air. XR/XR chest 2V IMPRESSION: NO ACUTE CARDIOPULMONARY ABNORMALITY. Impression dictated by: Tenzin Pineda Jr., D.O. 04/30/2025 12:32 PM Dictation Location: [place] [address] Electronically authenticated by: [id number] Y Date: 04/30/2025 12:32 Dictated By: Tenzin Pineda M.D. Signed By: 04/30/25 1234 DD/ 1232 TD/TT: General Maintenance Helper: Procedure Note Radiology, Radiologist, MD - 04/30/2025 The [place] [id number] XRay Report Signed Patient: FAROOQ JIANG BMR#: [id number] : 1940cct:[id number] Age/Sex: 84 / FADM Date: 04/30/25 Loc: RAGHU Attending Dr: Jaylen Malagon D.O. Ordering Physician: Jaylen Malagon D.O. Date of Service: 04/30/25 Procedure(s): XR chest 2V Accession Number(s): [id number] cc: Jaylen Malagon D.O.; Stefani Colón NP [address] [address] Patient Name: FAROOQ JIANG MRN: [id number] date: 1940 Sex: F Assigned Patient Location: [facility] Accession/Order Number: [id number] Exam Date: 04/30/2025 12:32 Report Date: 04/30/2025 12:32 At the request of: JAYLEN MALAGON DO Procedure: XR chest 2V Chest 2 views CLINICAL HISTORY: Pre Op COMPARISON: None FINDINGS: Heart normal in size. Presumably remote posttraumatic changes involvingthe right rib cage. No lung consolidation pneumothorax pleural effusion orfree air. XR/XR chest 2V IMPRESSION: NO ACUTE CARDIOPULMONARY ABNORMALITY. Impression dictated by: Tenzin Pineda Jr., D.O. 04/30/2025 12:32 PM Dictation Location: [place] [address] Electronically authenticated by: [id number] Y Date: 2:32 Dictated By: Tenzin Pineda M.D. Signed By:04/30/25 1234 DD/ 1232 TD/TT: General Maintenance Helper: Jaylen Malagon DO [facility] IMAGING Final Result * [facility] PROTHROMBIN TIME INR W/O COUM (04/30/2025 12:05 PM EDT) PROTHROMBIN TIME 10.3 9.0 - 11.6 sec TBH TBH INR 0.97 TBH Comment: DESIRED INR: 2.0-3.0 CONDITIONS NOT LISTED BELOW 2.5-3.5 FOR PROSTHETIC HEART VALVE REPLACEMENT 2.5-3.5 RECURRENT THROMBOSIS 04/30/2025 12:0 5 PM EDT 04/30/2025 12:08 PM EDT Narrative [facility] - 04/30/2025 12:38 PM EDT Jaylen Manas DO [facility] Final Result [facility] TB * [facility] APTT (04/30/2025 12:05 PM EDT) PARTIAL THROMBOPLASTIN TIME 25.6 22.3 - 36.2 sec [facility] 04/30/2025 12:0 5 PM EDT 04/30/2025 12:08 PM EDT Narrative [facility] - 04/30/2025 12:38 PM EDT [facility] [place] DO [facility] Final Result [facility] TB * (ABNORMAL) ALL CBC WITH AUTO DIFF (04/30/2025 12:05 PM EDT) Pathologist [facility] TB WBC 7.2 4.0 - 11.0 10 3/uL TBH TB RBC 4.50 4.20 - 5.40 10 6/uL TBH TB HGB 14.1 12.0 - 16.0 g/dL TB TB HCT 43.1 36.0 - 48.0 % TB TB MCV 95.8 81.0 - 99.0 fL TB TB MCH 31.3 26.7 - 34.0 pg TBH TB MCHC 32.7 29.9 - 35.2 g/dL TB TB RDW 13.0 11.0 - 15.0 % TB TB PLT 151 150 - 450 10 3/uL TBH TB MPV 10.4 9.5 - 13.5 fL TBH NEUTROPHILS PERCENT AUTO 68.5 43.0 - 75.0 % TBH LYMPHOCYTES PERCENT AUTO 19.8(L) 20.5 - 60.0 % TBH MONOCYTES PERCENT AUTO 7.1 1.7 - 12.0 % TBH TBH EO % 3.7 0.9 - 7.0 % TBH BASOPHILS PERCENT AUTO 0.6 0.2 - 2.0 % TBH IMMATURE GRANULOCYTES PCT AUTO 0.3 0.0 - 0.5 % TBH NEUTROPHILS ABSOLUTE AUTO 4.9 1.4 - 6.5 10 3/uL TBH LYMPHOCYTES ABSOLUTE AUTO 1.4 1.2 - 3.8 10 3/uL TBH MONOCYTES ABSOLUTE AUTO 0.5 0.3 - 0.8 10 3/uL TBH TBH EO # 0.3 0.0 - 0.7 10 3/uL TBH BASOPHILS ABSOLUTE AUTO 0.0 0.0 - 0.1 10 3/uL TBH IMMATURE GRANULOCYTES ABS AUTO 0.02 0.00 - 0.03 10 3/uL TBH 04/30/2025 12:0 5 PM EDT 04/30/2025 12:08 PM EDT Narrative [facility] - 04/30/2025 12:19 PM EDT Jaylen Manas DO CLINISYNC Final Result Performing Organization Address [facility]/ZIP Co de Phone Number [facility] * (ABNORMAL) ALL BASIC METABOLIC PANEL (04/30/2025 12:05 PM EDT) SODIUM 143 136 - 145 mmol/L TBH POTASSIUM 4.9 3.5 - 5.1 mmol/L TBH CHLORIDE 104 98 - 107 mmol/L TBH CARBON DIOXIDE 32.6(H) 21.0 - 32.0 mmol/L TBH ANION GAP 11.3 TBH GLUCOSE 218(H) 74 - 106 mg/dL TBH BLOOD UREA NITROGEN 17.0 7.0 - 18.0 mg/dL TBH CREATININE 0.80 0.55 - 1.02 mg/dL TBH TBH EGFR-AF IVORIAN >60 >=60 mL/min/1.7 3m 2 TBH TBH EGFR-NON AF IVORIAN >60 >=60 mL/min/1.7 3m 2 TBH BUN CREATININE RATIO 21.2 TBH CALCIUM 8.9 8.5 - 10.1 mg/dL TBH 04/30/2025 12:0 5 PM EDT 04/30/2025 12:08 PM EDT Narrative [facility]IN[facility]NC - 04/30/2025 12:28 PM EDT Jaylen Manas DO CLINIS[facility]NC Final Result [facility] TB[facility] * ECG 12-LEAD (04/30/2025 9:58 AM EDT) Anatomical Region Laterality Modality Other 04/30/2025 9:58 AM EDT Narrative 05/01/2025 6:20 PM EDT The [address] [address] Electrocardiograph Report Signed Patient: FAROOQ JIANG MR#: [id number] : 1940 Acct:[id number] Age/Sex: 84 / F ADM Date: 04/30/25 Loc: PST Attending Dr: Jaylen Malagon D.O. Ordering Physician: Jaylen Malagon D.O. Date of Service: 04/30/25 Procedure(s): ECG 12 lead Accession Number(s): [id number] cc: The [facility] Test Date: 2025-04-30 Pat Name: FAROOQ JIANG Department: Room: - Gender: Female Hospital Clinic Assistant: : 1940 Requested By: JAYLEN MALAGON Order Number: [id number] Reading MD: MELVINA KEY M.D. Measurements Intervals [place] Rate: 79 P: -49 NH: 158 QRS: -58 QRSD: 86 T: 38 QT: 374 QTc: 430 Interpretive Statements SINUS RHYTHM PATTERN CONSISTENT WITH PULMONARY DISEASE LEFT ANTERIOR FASCICULAR BLOCK [QRS AXIS <= -45, QR IN I, RS IN II] Compared to ECG 08/08/2024 12:21:41 No significant changes Electronically Signed On 05-01-2025 18:20:27 EDT by MELVINA KEY M.D. Dictated By: MELVINA KEY Signed By: 05/01/25 1820 DD/ 0958 TD/TT: General Maintenance Helper: Procedure Note Radiology, Radiologist, MD - 05/01/[address] [address] Electrocardiograph Report Signed Patient: FAROOQ JIANG BMR#: [id number] : 1940cct:[id number] Age/Sex: 84 / FADM Date: 04/30/25 Loc: PST Attending Dr: Jaylen Malagon D.O. Ordering Physician: Jaylen Malagon D.O. Date of Service: 04/30/25 Procedure(s): ECG 12 lead Accession Number(s): [id number] cc: [facility] Test Date: 2025-04-30 Pat Name: FAROOQ JIANG Department: Room: - Gender: Female Hospital Clinic Assistant: : 1940 Requested By: JAYLEN MALAGON Order Number: [id number] Reading MD: MELVINA KEY M.D. Measurements Intervals [place] Rate: 79 P: -49 NH: 158 QRS: -58 QRSD: 86 T: 38 QT: 374 QTc: 430 Interpretive Statements SINUS RHYTHM PATTERN CONSISTENT WITH PULMONARY DISEASE LEFT ANTERIOR FASCICULAR BLOCK [QRS AXIS <= -45, QR IN I, RS IN II] Compared to ECG 08/08/2024 12:21:41 No significant changes Electronically Signed On 05-01-2025 18:20:27 EDT by MELVINA KEY M.D. Dictated By: MELVINA KEY Signed By:05/01/25 1820 DD/ 0958 TD/TT: General Maintenance Helper: us Jaylen Malagon DO [facility] IMAGING Final Result * US Pelvis w/ TV (04/14/2025 1:39 PM EDT) Anatomical Region Laterality Modality Pelvis Ultrasound 04/15/2025 8:14 AM EDT Narrative 04/15/2025 8:14 AM EDT EXAM: US PELVIC COMPLETE W/ TV HISTORY: Pelvic fluid collection. COMPARISON: Abdomen/pelvis CT 04/01/2025. TECHNIQUE: Two-dimensional transabdominal grayscale ultrasound imaging of the pelvis was performed. Transvaginal was performed. FINDINGS: UTERUS 9.6 x 5.8 x 6.6 cm The uterus is anteverted in position and demonstrates a normal, homogeneous echotexture. There is a 7.7 cm mildly complex fluid collection within the endometrial canal. There is also a 0.8 cm hyperechoic lesion visualized. Multiple nabothian cysts are visualized within the cervix. The endometrium is obscured. The bilateral ovaries are not visualized. No fluid is present within the cul-de-sac. IMPRESSION: 1. Mildly complex fluid collection within the endometrial canal, measuring 7.7 cm. Gynecological consultation is recommended. 2. Hyperechoic lesion within the endometrial canal, most likely representing an endometrial polyp. 3. Bilateral ovaries not visualized. Interpreted by: Electronically signed by JASS BILLINGSLEY II, MD, PHD at 15-Apr-2025 08:13:12 AM [facility] Procedure Note Jass Billingsley MD - 04/15/2025 EXAM: US PELVIC COMPLETE W/ TV HISTORY: Pelvic fluid collection. COMPARISON: Abdomen/pelvis CT 04/01/2025. TECHNIQUE: Two-dimensional transabdominal grayscale ultrasound imaging ofthe pelvis was performed. Transvaginal was performed. FINDINGS: UTERUS 9.6 x 5.8 x 6.6 cm The uterus is anteverted in position and demonstrates a normal,homogeneous echotexture. There is a 7.7 cm mildly complex fluidcollection within the endometrial canal. There is also a 0.8 cmhyperechoic lesion visualized. Multiple nabothian cysts are visualizedwithin the cervix. The endometrium is obscured. The bilateral ovaries are not visualized. No fluid is present within the cul-de-sac. IMPRESSION: 1. Mildly complex fluid collection within the endometrial canal, measuring7.7 cm. Gynecological consultation is recommended. 2. Hyperechoic lesion within the endometrial canal, most likelyrepresenting an endometrial polyp. 3. Bilateral ovaries not visualized. Interpreted by: Electronically signed by JASS BILLINGSLEY II, MD, PHD [id number] 08:13:12 AM [facility] us Jaylen Manas DO IM US PROCEDURES Final Result * CT abdomen pelvis wo IV contrast (04/01/2025 3:34 PM EDT) Anatomical Region Laterality Modality Body, Pelvis, Abdomen Computed T omography Abdominal wall procedure / Unknown 04/01/2025 4:26 PM EDT Narrative 04/01/2025 4:[address] ABDOMEN PELVIS WO IV CONTRAST HISTORY: Acute mid abdominal pain for one week after fall COMPARISON: None. TECHNIQUE: The study consists of helical images obtained through the abdomen and pelvis without the use of intravenous contrast. Coronal and sagittal reformations were reconstructed. The patient tolerated the procedure and there were no immediate complications. FINDINGS: ABDOMEN: VISUALIZED CHEST: Visualized portions of the lungs show no consolidation or effusions. LIVER: There is a coarse calcification in the right lobe of the liver anteriorly. GALLBLADDER: Clips are present. SPLEEN: No focal masses or enlargement. KIDNEYS: No hydronephrosis or contour deforming lesions are seen. ADRENALS: No adrenal mass is seen. PANCREAS: No contour deforming lesions are seen. RETROPERITONEUM: No retroperitoneal adenopathy is seen. BOWEL: The stomach and small bowel are not dilated. No bowel obstruction. PELVIS COLON: The colon is not dilated. Mild retained stool is seen in the proximal colon. There are a few scattered diverticuli in the distal colon. PERITONEAL CAVITY: No free fluid or free air. BLADDER: Normal. REPRODUCTIVE ORGANS: The uterus is present with apparent cystic changes occupying most of the large necrotic fibroid approximately fluid in the distended endometrial cavity OSSEOUS STRUCTURES: There is spurring of the vertebra at several levels and fixation hardware is seen in the proximal right femur. BODY WALL: Grossly intact IMPRESSION: 1. Limited assessment overall without IV contrast. 2. No free fluid or acute process as seen. 3. Cystic dilation of the uterus. Recommend pelvic ultrasound correlation. Dictated on: 04/01/2025 2:09 PM This report has been electronically signed and approved by the interpreting Radiologist. Procedure Note Guille Broderick MD - 04/01/2025 CT ABDOMEN PELVIS WO IV CONTRAST HISTORY: Acute mid abdominal pain for one week after fall COMPARISON: None. TECHNIQUE: The study consists of helical images obtained through theabdomen and pelvis without the use of intravenous contrast. Coronal andsagittal reformations were reconstructed. The patient tolerated theprocedure and there were no immediate complications. FINDINGS: ABDOMEN: VISUALIZED CHEST: Visualized portions of the lungs show no consolidationor effusions. LIVER: There is a coarse calcification in the right lobe of the liveranteriorly. GALLBLADDER: Clips are present. SPLEEN: No focal masses or enlargement. KIDNEYS: No hydronephrosis or contour deforming lesions are seen. ADRENALS: No adrenal mass is seen. PANCREAS: No contour deforming lesions are seen. RETROPERITONEUM: No retroperitoneal adenopathy is seen. BOWEL: The stomach and small bowel are not dilated. No bowelobstruction. PELVIS COLON: The colon is not dilated. Mild retained stool is seen in theproximal colon. There are a few scattered diverticuli in the distalcolon. PERITONEAL CAVITY: No free fluid or free air. BLADDER: Normal. REPRODUCTIVE ORGANS: The uterus is present with apparent cystic changesoccupying most of the large necrotic fibroid approximately fluid in thedistended endometrial cavity OSSEOUS STRUCTURES: There is spurring of the vertebra at several levelsand fixation hardware is seen in the proximal right femur. BODY WALL: Grossly intact IMPRESSION: 1. Limited assessment overall without IV contrast. 2. No free fluid or acute process as seen. 3. Cystic dilation of the uterus. Recommend pelvic ultrasoundcorrelation. Dictated on: 04/01/2025 2:09 PM This report has been electronically signed and approved by theinterpreting Radiologist. Stefani Colón NP IMG CT PROCEDURES Final Result * Microalbumin / creatinine urine ratio (02/24/2025 8:23 AM EDT) CREATININE, RANDOM URINE 95 20 - 275 mg/dL [facility] ALBUMIN, URINE 2.5 See Note: mg/dL [facility] Comment: Reference Range: Reference Range Not established ALBUMIN/CREATININE RATIO, RANDOM URINE 26 <30 mg/g creat [facility] Comment: The ADA defines abnormalities in albumin excretion as follows: Albuminuria Category Result (mg/g creatinine) Normal to Mildly increased <30 Moderately increased 30-299 Severely increased > OR = 300 The ADA recommends that at least two of three specimens collected within a 3-6 month period be abnormal before considering a patient to be within a diagnostic category. Urine Urine specimen obtained by clean catch procedure / Unknown 02/24/2025 8:23 AM EDT 02/24/2025 3:42 PM EDT Narrative Resulting Agency Comment Performing Organization Information Site ID: [id number] Name: [id number] Address: [address] [place] [address], [address] [place] [id number] Director: Naresh Hinds MD Stefani Kampfer ARTIFICIAL TEETH INSPECTOR LAB URINE ORDERABLES Final Resu lt [facility] * POCT Urinalysis dipstick (02/24/2025 8:14 AM EDT) Color, UA Yellow Clarity, UA Clear Glucose, UA 1+ Negative - 1999(110) ++++ mg/dL Bilirubin, UA Negative Negative - 4(70) +++ mg/dL Ketones, UA Negative Negative - 160(16) ++++ mg/dL Spec Grav, UA 1.030 1 - 1.03 Blood, UA Negative Negative - 50 Luc/mcL pH, UA 5.0 5 - 9 Protein, UA Negative Negative - 1999(20) ++++ mg/dL Urobilinogen, UA 0.2 0.2 - 12 mg/dL Leukocytes, UA Positive Negative - 500+++ Savanah/mcL Nitrite, UA Negative Negative - Positive Urine 02/24/2025 8:14 AM EDT Stefani Colón NP POINT OF CARE TEST ENTER/EDIT O RDERABLES Final Result * (ABNORMAL) POCT Glycated hemoglobin, total (02/07/2025 1:01 PM EDT) Hemoglobin A1C 8.7 Capillary 02/07/2025 1:01 PM EDT Stefani Colón NP POINT OF CARE TEST ENTER/EDIT O RDERABLES Final Result * Diabetic Retinopathy Screening - OU - Both Eyes (03/26/2024 1:38 PM EDT) Anatomical Region Laterality Modality Head Other us Stefani Colón NP OPHTH PHOTOGRAPHY Final Result from Last 3 Months or Most Recently Relevant to Health Maintenance Additional Health Concerns Active Problems Noted Date Diagnosed Date Patient on antidepressant monitoring plan 2024 Baseline PHQ-9 11/06/2024 Insurance MEDICARE [facility] Advance Directives Documents on File Type Date Recorded Patient Garageman Expl anation Advance Directives and Living Will 04/20/2022 2022-03-23 POA Advance Directives and Living Will 04/20/2022 2022-03-23 Living Wi Care Teams Cad Drafter Relationship Specialty Start Date End Date Nancy Rios MD [address] [place] [address] PCP - General Family Medicine 11/28/23 Stefani Colón NP [address] [facility] [place] [address] Nurse Practitioner Family Medicine 11/28/23 Rachel Storm LPN Licensed Practical Nurse Family Medicine 06/07/24
--- OUTSIDE RECORDS SUMMARY | 2025-05-16 08:22 | XMS_ITS | Encounter Summary ---
Author Organization [facility] Address [address] [place] [address] Care Team Providers Care Appeals Specialist Name Role Phone Nancy Rios MD Primary Care Provider [phone] Stefani Colón NP Unavailable [phone] Rachel Storm LPN Unavailable [phone] Encounter Details Date Type Department Care Team (Late st Contact Info) Description 04/23/2025 Abstract [facility] [address] [place] [address] Salvador Malagon, DO [address] [facility] [address] [place], [place] [id number] Social History Tobacco Use Types Packs/Day Years [...] often do you attend chur ch or baptist services? More than 4 times per year 11/18/2024 Do you belong to any clubs o r organizations such as worship groups, unions, fraternal or athletic groups, or [...] Recorded Patient Health Questionnaire-2 Score 0 11/19/2024 [facility] Occupat ional [facility] - Occupational Stress Questionnaire Answer Date Recorded [...] any time in the past 12 m [facility], were you homeless or living in a usp (including now)? No 11/18/2024 Comments No Sex [...] EDT Office Visit [facility] [address] [place] [phone] Stefani Colón NP [address] [place], [place] [phone] 05/21/2025 1:20 PM EDT Office Visit [facility] [address] [facility] [place] [address] Nupur Landon PA [address] [facility] [place] [address] 07/17/2025 10:15 AM EDT Procedure Visit [facility] [address] [place] [phone] Saman Vallecillo DPM [address] [place] [address] documented as of this encounter Goals Goal [...] documented as of this encounter Care Teams Appeals Specialist Relationship Specialty Start Date End Date Nancy Rios MD [address] [place], [place] [phone] PCP - General Family Medicine 11/28/23 Stefani Colón NP [address] [place], [place] [phone] Nurse Practitioner Family Medicine 11/28/23 Rachel Storm LPN Licensed Practical Nurse Family Medicine 06/07/24 documented as of this encounter
--- OUTSIDE RECORDS SUMMARY | 2025-05-16 08:22 | XMS_ITS | Encounter Summary ---
Author Organization [employer] [facility] Address [id number] [address] [place] [address] Care Team Providers Care Leaf Sorter Name Role Phone MauricehumaStefani lewis Jason SHOVELER-KEG INSPECTOR Primary Care Provider Encounter Details Date Type Department Care Team (Late st Contact Info) Description 01/15/2024 [facility]phone [facility] [address] [address] Holley Hollins DO [address] [address] Social History Tobacco Use Types Packs/Day Years Used Date Smoking Tobacco: Never Smokeless Tobacco: Never Alcohol Use Standard Drinks/Week Comments Not Currently 0 (1 standard drink = 0.6 oz pur e alcohol) [facility] Utilities Answer Date Recorded In the past 12 months has [employer], gas, oil, or water [employer] threatened to shut off services in your home? No 09/28/2023 Social Connection and Isolation Panel [NHANES] A nswer Date Recorded In a typical week, how many times do you talk on the phone with family, friends, or neighbors? Three times a week 09/28/20 How often do you get togethe r with friends or relatives? Once a week 09/28/2023 How often do you attend [facility] or latter day services? 1 to 4 times per year 09/28/2023 Do you belong to any clubs o r organizations such as lutheran groups, unions, fraternal or athletic groups, or [...] Answer Date Recorded Total Score 0 10/01/2023 [facility] ional Health - Occupational [...] Recorded Do you need help finding a [facility] career [facility] and/or a training program? No 09/28/2023 Hunger Screening Answer Date Recorded Within the past 12 months we worried whether our food would run out before we got money to buy more. Never True 09/28/2023 Within the past 12 months th e food we bought just didn't last and we didn't have money to get more. Never True 09/28/2023 Purpose - Life Answer Date Recorded I [...] encounter Miscellaneous Notes * Telephone Encounter - Berenice Sharpe - 01/15/2024 12:46 PM EDT Patient called and is angry at our office stating that we have not called her to make an appt in over a year. I informed the patient that she no-showed for an appt with our office in October. However, patient is having issues with mucous buildup and states that she needs to be seen sooner than April, which is next available. Please call patient, very difficult * Telephone Encounter - Holley Hollins DO - 01/15/2024 12:46 PM EDT Patient was a No Show in July and No Show in Oct. Has not been seen since Jun 2022. Does not appear to be taking her Symbicort that she was on at that last visit. She can be added on to earlier clinic in the next month but needs to come to appt as that will be 3rd no show please. * Telephone Encounter - Amara Dumont RN - 01/15/2024 12:46 PM EDT Tv News Director spoke to patient and informed per Dr Hollins, Patient was a No Show in July 2023 and No Show in Oct 2023. Patient has not been seen since Jun 2022. Does not appear to be taking her Symbicort that she was on at that last visit. She can be added on to earlier clinic in the next month but needs to come to appt. If patient no show or r/s appt, patient will be discharged from practice. Patient agreeable documented in this encounter Plan of Treatment [...] documented as of this encounter Care Teams Leaf Sorter Relationship Specialty Start Date End Date Stefani Colón APRN-ANTOINETTE [address] [place] [address] PCP - General Nurse Practitioner 03/29/24 documented as of this encounter
--- OUTSIDE RECORDS SUMMARY | 2025-05-16 08:23 | XMS_ITS | Encounter Summary ---
Author Organization [facility] Address [address] [place] [address] Care Team Providers Care Cafeteria Server Name Role Phone Garrett Danisha Pappas DO Unavailable [phone] Nancy Rios MD Primary Care Provider Stefani Colón SENIOR TECHNICAL ARCHITECT Unavailable [phone] Rachel Storm LPN Unavailable [phone] Garrett Danishacara Pappas DO Unavailable [phone] Encounter Details Date Type Department Care Team (Late st Contact Info) Description 11/22/2024 Orders Only [facility] [address] [place] [address] Stefani Colón SENIOR TECHNICAL ARCHITECT [address] [place], [place] [phone] Abnormal pelvic ultrasound; Pelvic fluid collection; Age-related osteoporosis without current pathological fracture ; Generalized weakness; Unsteady gait; At maximum risk for fall; Frequent UTI Social History Tobacco Use Types Packs/Day Years [...] week 11/18/2024 How often do you attend [facility] or advent services? More than 4 times per year 11/18/2024 Do you belong to any clubs o r organizations such as jain groups, unions, fraternal or athletic groups, or [...] Recorded Patient Health Questionnaire-2 Score 0 11/19/2024 [facility] Occupat ional [facility] - Occupational Stress Questionnaire Answer Date [...] the money to buy more. Sometimes true 01 / Within the past 12 months, t he [...] were you homeless or living in a fci (including now)? No 11/18/2024 Comments No Sex [...] EDT Office Visit [facility] [address] [place] [phone] Stefani Colón NP [address] [place] [address] 05/21/2025 1:20 PM EDT Office Visit [facility] OB [address] [facility] [place] [phone] Nupur Landon PA [address] [facility] [place] [address] 07/17/2025 10:15 AM EDT Procedure Visit [facility] [address] [place] [address] Saman Vallecillo DPM [address] [place] [address] documented as of this encounter Goals Goal Patient Goal Type Associated Problems Recent Progress Patient-Stated? Author Help patient manage antidepressant medication Care Plan Patient on antidepressant monitoring plan No Stefani Colón NP Baseline PHQ-9 Care Plan Baseline PHQ-9 No Stefani Colón NP documented as of this encounter Visit Diagnoses Diagnosis Abnormal pelvic ultrasound Pelvic fluid collection Other ascites Age-related osteoporosis without current pathological fracture Generalized weakness Unsteady gait Abnormality of gait At maximum risk for fall Frequent UTI Urinary tract infection, site not specified documented in this encounter Additional Health Concerns Active Problems Noted Date Diagnosed Date Patient on antidepressant monitoring plan 2024 Baseline PHQ-9 11/06/2024 Assessment Noted Time PHQ-9 Depression Total Score: 0 11/19/19 12:00 PM EST documented as of this encounter Care Teams Cafeteria Server Relationship Specialty Start Date End Date Danisha Tucker DO [address] [facility] [address] [place] [phone] PCP - ACO Reach 03/23/23 12/05/24 Nancy Rios MD [address] [place], [place] [phone] PCP - General Family Medicine 11/28/23 Danisha Tucker DO [address] [facility] [address] [place] [address] PCP - ACO Reach 12/13/24 01/30/25 Stefani Colón NP [address] [place], [place] [phone] Nurse Practitioner Family Medicine 11/28/23 Rachel Storm LPN Licensed Practical Nurse Family Medicine 06/07/24 documented as of this encounter
--- OUTSIDE RECORDS SUMMARY | 2025-05-16 08:23 | XMS_ITS | Encounter Summary ---
Author Organization [facility] Address [address] [place] [address] Care Team Providers Care Psychiatric Specialist Name Role Phone Danisha Tucker DO Unavailable [phone] Danisha Tucker DO Primary Care Provider Nancy Rios MD Primary Care Provider [phone] Stefani Colón AVIATION ELECTRICAL TECHNICIAN Unavailable [phone] Rachel Storm LPN Unavailable [phone] Danisha Tucker DO Unavailable [phone] Encounter Details Date Type Department Care Team (Late st Contact Info) Description 08/22/2023 Abstract [facility] [address] [place] [address] Danisha Tucker DO [address] [facility] [address] [place] [address] Social History Tobacco Use Types Packs/Day Years Used Date Smoking Tobacco: Never Smokeless Tobacco: Never Alcohol Use Standard Drinks/Week Comments Never 0 (1 standard drink = 0.6 oz pur e alcohol) caffeine: 1-2 cups per day PHQ-2 Answer Date Recorded Patient Health Questionnaire-2 Score 0 05/30/2023 Comments Unknown Sex and Gender Information Value Date Recorded Sex Assigned at Not on file Legal Sex Female 7:07 PM EDT Gender Identity Not on file Sexual Orientation Not on file documented as of this encounter Plan of Treatment Upcoming Encounters Date Type Department Care Team (Late st Contact Info) Description 05/21/2025 9:00 AM EDT Office Visit [facility] [address] [facility] [place] [phone] Stefani Colón NP [address] [facility] [place] [address] 05/21/2025 1:20 PM EDT Office Visit [facility] BCP OB [address] [facility] [place] [address] Nupur Landon PA [address] [facility] [address] [place], [place] [phone] 07/17/2025 10:15 AM EDT Procedure Visit [facility] [address] [place] [phone] Saman Vallecillo DPM [address] [place] [address] documented as of this encounter Visit Diagnoses Not on filedocumented in this encounter Care Teams Psychiatric Specialist Relationship Specialty Start Date End Date Danisha Tucker DO [address] [facility] [address] [facility] [place] [address] PCP - ACO Reach 03/23/23 12/05/24 Danisha Tucker DO [address] [facility] [address] [facility] [place] [address] PCP - General Family Medicine 05/27/23 11/27/23 Nancy Rios MD [address] [facility] [place], [place] [address] PCP - General Family Medicine 11/28/23 Danisha Tucker DO [address] [phone] PCP - ACO Reach 12/13/24 01/30/25 Stefani Colón NP [address] [place] [address] Nurse Practitioner Family Medicine 11/28/23 Rachel Storm LPN Licensed Practical Nurse Family Medicine 06/07/24 documented as of this encounter
--- OUTSIDE RECORDS SUMMARY | 2025-05-16 08:23 | XMS_ITS ---
Author Organization [facility] Address [address] [place] [address] Care Team Providers Care Bridge Maintenance Worker Name Role Phone Nancy Rios MD Primary Care Provider [phone] Stefani Colón NP Unavailable [phone] Rachel Storm LPN Unavailable [phone] Chronic Care Management (CCM) Status:Enrolled (Active) Start date:06/07/2024 Enrollment date:06/07/2024 Overview Please assess for Care Management needs. Case Team Name Relationship Phone Rachel Storm LPN(Responsible Staff) Licensed Pra ctical Nurse [phone] Continued Care and Services Coordination
--- OUTSIDE RECORDS SUMMARY | 2025-05-16 08:23 | XMS_ITS | Encounter Summary ---
Author Organization [facility] Address [address] [place] [address] Care Team Providers Care Steam Shovel Engineer Name Role Phone Garrett Danisha Pappas DO Unavailable [phone] Nancy Rios MD Primary Care Provider [phone] Stefani Colón HOUSEKEEPING CLEANER Unavailable [phone] Rachel Storm LPN Unavailable [phone] GarrettDanisha garrido DO Unavailable [phone] Encounter Details Date Type Department Care Team (Late st Contact Info) Description 03/26/2024 Orders Only [facility] [address] [place] [address] Stefani Colón NP [address] [place], [place] [phone] Social History Tobacco Use Types Packs/Day Years Used Date Smoking Tobacco: Never Smokeless Tobacco: Never Alcohol Use Standard Drinks/Week Comments Never 0 (1 standard drink = 0.6 oz pur e alcohol) caffeine: 1 cups per day PHQ-2 Answer Date Recorded [...] EDT Office Visit [facility] [address] [place] [phone] Stefani Colón NP [address] [place] [address] 05/21/2025 1:20 PM EDT Office Visit [facility] B[facility] OB [address] [facility] [place] [address] Nupur Landon PA [address] [facility] [place] [address] 07/17/2025 10:15 AM EDT Procedure Visit [facility] [address] [place] [address] Saman Vallecillo DPM [address] [place] [address] documented as of this encounter Procedures Procedure Name Priority Date/Time Associated Diagnosis Comments DIABETIC RETINOPATHY SCREENING - OU - BOTH EYES Routine 03/26/2024 1:38 PM EDT documented in this encounter Results * Diabetic Retinopathy Screening - OU - Both Eyes (03/26/2024 1:38 PM EDT) Anatomical Region Laterality Modality Head Other Stefani Colón HOUSEKEEPING CLEANER OPHTH PHOTOGRAPHY Final Result documented in this encounter Visit Diagnoses Not on filedocumented in this encounter Care Teams Steam Shovel Engineer Relationship Specialty Start Date End Date Danisha Tucker DO [address] [facility] 200 [place] [phone] PCP - ACO Reach 03/23/23 12/05/24 Nancy Rios MD [address] [facility] [place], [place] [phone] PCP - General Family Medicine 1/30/24 Danisha Tucker DO [address] [phone] PCP - ACO Reach 12/13/24 01/30/25 Stefani Colón NP [address] [place] [address] Nurse Practitioner Family Medicine 11/28/23 Rachel Storm LPN Licensed Practical Nurse Family Medicine 06/07/24 documented as of this encounter
--- OUTSIDE RECORDS SUMMARY | 2025-05-16 08:23 | XMS_ITS | Encounter Summary ---
Author Organization [facility] Address [address] [place] [address] Care Team Providers Care State Historical Society Director Name Role Phone Nancy Rios MD Primary Care Provider [phone] Stefani Colón CHIEF GROWTH OFFICER Unavailable [phone] Rachel Storm LPN Unavailable [phone] Danisha Tucker DO Unavailable [phone] Encounter Details Date Type Department Care Team (Late st Contact Info) Description 01/26/2025 Abstract [facility] [address] [place] [address] Stefani Colón NP [address] [place], [place] [phone] Social History Tobacco Use Types Packs/Day Years [...] week 11/18/2024 How often do you attend [facility] or caodaism services? More than 4 times per year 11/18/2024 Do you belong to any clubs o r organizations such as orthodoxy groups, unions, fraternal or athletic groups, or [...] Recorded Patient Health Questionnaire-2 Score 0 11/19/2024 [facility] Occupat ional Health - Occupational [...] time in the past 12 m [facility], were you homeless or living in a fdc (including now)? No 11/18/2024 Comments No Sex [...] EDT Office Visit [facility] [address] [place] [phone] Stefani Colón NP [address] [place], [place] [phone] 05/21/2025 1:20 PM EDT Office Visit [facility] OB [address] [facility] [address] Nupur Landon PA [address] [facility] [place] [address] 07/17/2025 10:15 AM EDT Procedure Visit [facility] [address] [place] [address] Saman Vallecillo DPM [address] [place] [address] documented as of this encounter Goals Goal [...] documented as of this encounter Care Teams State Historical Society Director Relationship Specialty Start Date End Date Nancy Rios MD [address] [place] [address] PCP - General Family Medicine 11/28/23 Danisha Tucker DO [address] [phone] PCP - ACO Reach 12/13/24 01/30/25 Stefani Colón NP [address] [place], [place] [phone] Nurse Practitioner Family Medicine 11/28/23 Rachel Storm LPN Licensed Practical Nurse Family Medicine 06/07/24 documented as of this encounter
--- OUTSIDE RECORDS SUMMARY | 2025-05-16 08:23 | XMS_ITS | Encounter Summary ---
Author Organization [facility] Address [address] [place] [address] Care Team Providers Care Belt Machine Operator Name Role Phone Steve Tuckeree Mian Unavailable [phone] Nancy Rios MD Primary Care Provider [phone] Stefani Colón SUPPORT SERVICES REP Unavailable [phone] Rachel Storm LPN Unavailable [phone] GarrettDanisha garrido DO Unavailable [phone] Encounter Details Date Type Department Care Team (Late st Contact Info) Description 02/08/2024 Orders Only [facility] [address] [place] [address] Stefani Colón NP [address] [place], [place] [id number] Social History Tobacco Use Types Packs/Day Years [...] EDT Office Visit [facility] [address] [place] [phone] Stefani Colón NP [address] [facility] [place] [address] 05/21/2025 1:20 PM EDT Office Visit [facility] [address] [place] [address] Nupur Landon PA [address] [facility] [address] 07/17/2025 10:15 AM EDT Procedure Visit [facility] [address] [place] [phone] Saman Vallecillo DPM [address], [place] [id number] documented as of this encounter Procedures Procedure Name Priority Date/Time Associated Diagnosis Comments DIABETIC RETINOPATHY SCREENING - OU - BOTH EYES Routine 09/13/2022 8:31 AM EST documented in this encounter Results * Diabetic Retinopathy Screening - OU - Both Eyes (09/13/2022 8:31 AM EST) Anatomical Region Laterality Modality Head Other Stefani Colón SUPPORT SERVICES REP OPHTH PHOTOGRAPHY Final Result documented in this encounter Visit Diagnoses Not on filedocumented in this encounter Care Teams Belt Machine Operator Relationship Specialty Start Date End Date Danisha Tucker DO [address] [facility] [address] [place] [phone] PCP - ACO Reach 03/23/23 12/05/24 Nancy Rios MD [address] [facility] [place] [id number] PCP - General Family Medicine 1/30/24 Danisha Tucker DO [address] [phone] PCP - ACO Reach 12/13/24 01/30/25 Stefani Colón NP [address] [place] [address] Nurse Practitioner Family Medicine 11/28/23 Rachel Storm LPN Licensed Practical Nurse Family Medicine 06/07/24 documented as of this encounter
[2025-05-16 08:29] LABS: Hematocrit 46.5 % (36.0-48.0); Hemoglobin 14.9 g/dL (12.0-16.0); Immature Granulocytes Abs Auto 0.01 10^3/uL (0.00-0.03); Immature Granulocytes Pct Auto 0.1 % (0.0-0.5); Lymphocytes Absolute Auto 1.5 10^3/uL (1.2-3.8); Mean Corpuscular HGB Conc 32.0 g/dL (29.9-35.2); Mean Corpuscular Hemoglobin 30.6 pg (26.7-34.0); Mean Corpuscular Volume 95.5 fL (81.0-99.0); Platelet Count 154 10^3/uL (150-450); Red Blood Count 4.87 10^6/uL (4.20-5.40); White Blood Count 8.5 10^3/uL (4.0-11.0)
--- NOTE | 2025-05-16 10:16 | PM.ONB ---
Brief Operative Note Date of procedure: 05/16/25 Pre-op diagnosis general: pelvic pain, uterine fibroid, uterine polyp Post-op diagnosis: same as pre-op Procedure: NAME OF PROCEDURE: [d&c hysteroscopy] PROCEDURE: The patient was taken back to the Operating Room where she was prepped and draped in normal sterile fashion after being placed under general anesthesia without difficulty. She was also placed in the dorsal lithotomy position. A weighted speculum was placed in the patient?s vagina. The anterior lip of the cervix was identified and grasped with a single tooth tenaculum. The patient?s uterus was then sounded roughly to [?11 ] cm. The patient was then gently dilated using Hegar dilators. significant amount of uterine fluid that was pus like in nature approx 350ml was drained, The hysteroscope was passed through the patient?s cervix into the uterus. difficult to assess cavity due to friable and chronic nature of disease, pippette was used to obtain sample of fluid and possible currettings due to fear of perforating uterus. The hysteroscope was then removed from the patient's uterus.? The endometrial curettings were sent out to pathology.? The single tooth tenaculum was then removed from the patient's anterior lip of the cervix where excellent hemostasis was noted. Anesthesia: MAC Surgeon: Salvador Malagon Estimated blood loss (mL): 5 Pathology: other (endometrial fluid and currettings) Condition: stable Disposition: PACU Urinary Catheter Management Urinary Catheter Management Urethral: Cath placed during this visit: no
--- NOTE | 2025-05-16 11:27 | PC.NURSE ---
PATIENT STATES HER NAUSEA IS BETTER AFTER ZOFRAN GIVEN
--- NOTE | 2025-05-16 12:56 | PC.NURSE ---
DEBRA PAD HAD MODERATE ABOUT OF BLOODY DRAINAGE PRIOR TO DISCHARGE WITH SOME PURULENT DRAINAGE. NEW DEBRA PAD IN PLACE AT DISCHARGE
--- NOTE | 2025-05-16 12:59 | PC.NURSE ---
[address] PACHECO THAT PATIENT HAD SLIGHTLY ELEVATED HEART RATE THROUGHOUT RECOVERY. PATIENT HAS A HISTORY OF ATRIAL FIBRILLATION. 1210 HEART RATE DROPPED BACK DOWN TO THE 70'S AND AT DISCHARGE WAS AT 78. DISCHARGED IN STABLE CONDITION.
== END 2025-05-16 12:22 | disposition home or self-care (01) ==
LOC: SURGOUT 08:20
PROVIDERS: PCP Nurse Practitioner Family; Visit Provider Obstetrics & Gynecology
PROC: (CPT 58558; principal; 2025-05-16 09:45)
DX: R10.2 Pelvic and perineal pain (principal); N84.0 Polyp of corpus uteri; D25.9 Leiomyoma of uterus, unspecified; Z90.49 Acquired absence of other specified parts of digestive tract; Z96.659 Presence of unspecified artificial knee joint; G47.33 Obstructive sleep apnea (adult) (pediatric); I10 Essential (primary) hypertension; I48.91 Unspecified atrial fibrillation; Z79.4 Long term (current) use of insulin; E10.40 Type 1 diabetes mellitus with diabetic neuropathy, unspecified; E10.319 Type 1 diabetes mellitus with unspecified diabetic retinopathy without macular edema
CPT/HCPCS: 58558; 36415; 82948; 85025; 88305; 88341; 88342; J0131; J1100; J2250; J2405; J2704; J3010